=== PATIENT | female | born 1995 | race Caucasian/White ===

== ENCOUNTER 2025-01-19 17:00 | Observation (INO) | payer OTHER, SELFPAY ==
--- NOTE | ~2025-01-19 | MR_ITS ---
MRI of the brain Clinical History: Abnormal basal ganglia findings Technique: Axial and sagittal T1-weighted images were acquired. These were followed by axial T2-weigh ke, diffusion weighted, gradient, and FLAIR images. Following intravenous administration of 10 cc Pr oHance gadolinium, T1-weighted fat-sat imaging was performed in the axial, coronal, and sagittal plan es. Findings: No abnormal signal seen in the brain parenchyma. There is layering in particular unremarkab le. No acute infarct, intracranial hemorrhage or mass lesion. Intrathecal and subarachnoid spaces are unremarkable. Orbits are unremarkable. Paranasal sinuses and mastoid air cells are clear. Major intracranial flow-voids are intact. Sagittal midline structures are intact. No abnormal postcontrast enhancement identified. IMPRESSION: No significant abnormality. Reviewed, dictated and finalized at [facility]. IMPRESSION: No significant abnormality.
--- NOTE | ~2025-01-19 | XR_ITS ---
EXAMINATION: XR chest 1V DATE: 01/19/2025 18:28 INDICATION: Anterior chest pain. TECHNIQUE: AP view of the chest was obtained. COMPARISON: None FINDINGS: The lungs are clear with no focal airspace opacities, pulmonary edema, pleural effusion or pneumothor ax. The cardiomediastinal silhouette is normal. Visualized bones and soft tissues are unremarkable. IMPRESSION: 1. No acute cardiopulmonary disease. Reviewed, dictated and finalized at location A.
--- NOTE | ~2025-01-19 | CT_ITS ---
EXAMINATION: CT brain wo con DATE: 01/19/2025 18:24 INDICATION: Dizziness and brain fog. TECHNIQUE: Computed tomography (CT) of the head was performed without intravenous contrast. Sagittal and coronal reconstructions were performed. The mA was adjusted according to patient size. Iterative reconstruction technique was employed. The dose-length product was 529.67 mGy-cm. COMPARISON: None FINDINGS: No acute intracranial hemorrhage, acute infarction or abnormal extra axial fluid collection. Ventricl es are normal and symmetric. No mass/mass effect. Mild symmetric increased density likely dystrophic calcification at the bilateral basal ganglia. The orbits, paranasal sinuses and mastoid air cells are normal. IMPRESSION: 1. No acute intracranial process. 2. Symmetric mild bilateral basal ganglia calcification which is atypical for age and which has a wid e differential. This would include idiopathic, sequela of toxic insult such as carbon monoxide poison ing or left posterior, sequela of chronic infection such as SPECIAL EVENTS MANAGER toxoplasmosis, tuberculosis or intrau terine TORCH infection, metabolic etiology such as hypoparathyroidism, hyperparathyroidism or hypothy roidism, sequela of hypoxia were multiple variable etiologies. Reviewed, dictated and finalized at location A. IMPRESSION: 1. No acute intracranial process. 2. Symmetric mild bilateral basal ganglia calcification which is atypical for a ge and which has a wide differential. This would include idiopathic, sequela of toxic insult such as carbon monoxide poisoning or left posterior, sequela of c hronic infection such as SPECIAL EVENTS MANAGER toxoplasmosis, tuberculosis or intrauterine TORCH infection, metabolic etiology such as hypoparathyroidism, hyperparathyroidism o r hypothyroidism, sequela of hypoxia were multiple variable etiologies.
--- NOTE | ~2025-01-19 | CT_ITS ---
CT abdomen pelvis w con Ordering provider: Dave Wright PA-C History: 29 years Female with . abdominal pain . Comparison: None. Technique: CT abdomen and pelvis with IV and without oral contrast. Automated exposure control and it erative reconstruction technique were employed. The dose-length product was 161.72 mGy-cm. 100 mL Omn ipaque 350 was given IV. Findings: VISUALIZED LOWER CHEST: Normal. UPPER ABDOMINAL ORGANS: Liver: Normal. Gallbladder: Contracted. Spleen: Normal. Stomach/duodenum: Normal. Pancreas: Normal. Adrenals: Normal. Kidneys: Tiny cyst in the left kidney midpole. Otherwise, normal. PELVIC ORGANS: The bladder is underfilled. Left ovarian cyst measuring 1.7 cm. BOWEL AND MESENTERY: Colon: No evidence of diverticulitis. Fecal material is loaded in the colon. Normal appendix. Small Bowel: Normal. No obstruction. Peritoneum/mesentery: No free air or free fluid. No mesenteric lymphadenopathy. RETROPERITONEUM: Normal aorta. No retroperitoneal lymphadenopathy. MUSCULOSKELETAL: Superficial soft tissues: The superficial soft tissues are normal. Bones: Normal spine. IMPRESSION: 1. No evidence of appendicitis, diverticulitis or intestinal obstruction. 2. Left ovarian cyst. 3. Constipation. Reviewed, dictated and finalized at location A.
--- NOTE | 2025-01-19 17:08 | ECG_ITS ---
Test Date: 2025-01-19 17:23:45 Measurements Intervals [place] Rate: 75 P: 52 OR: 124 QRS: 35 QRSD: 82 T: 31 QT: 359 QTc: 403 Interpretive Statements SINUS RHYTHM No previous ECG available for comparison Electronically Signed On 01-20-2025 12:37:53 CDT by Olaf Jarvis M.D.
[2025-01-19 17:09] VITALS: BP 129/84; PULSE 76; RESP 10; TEMP 36.8; O2SAT 100
--- NOTE | 2025-01-19 17:42 | ED_ITS ---
HPI - Chest Pain General Chief Complaint: Chest Pain <Makenzie Virgen PA-C - Last Filed: 01/20/25 02:09> Stated Complaint: substernal CP, ?groggy <Makenzie Virgen PA-C - Last Filed: 01/20/25 02:09> Time Seen by Provider: 01/19/25 17:01 <Makenzie Virgen PA-C - Last Filed: 01/20/25 02:09> History of Present Illness HPI narrative: 29 y/o F presents to the emergency department with fiance at bedside for multiple medical complaints. Patient is reporting lightheadedness, dizziness, feeling ?loopy? intermittently for about a week. This afternoon she had an episode of feeling dizzy and ?loopy? which prompted her to come to the ED. She states she took 2 halves of her clonazepam today, her 2nd half was an hour to prior to the onset of her loopiness today. She is reporting decreased sensation otherwise side of her body. She is also endorsing intermittent chest pain she describes as sharp and tingling in her chest. She cannot identify any aggravating or alleviating factors. Patient also reporting intermittent epigastric pain that is better after eating appearing she is not currently having any abdominal pain. She is currently on antibiotics for BV. She denies urinary complaints, vomiting. Has had some nausea and loose stools. Patient endorses history of ADHD and anxiety. Patient is on several psychiatric medications but is managed by her psychiatrist, Maliha Del Rosario. She notes she has been under multiple medication changes over the past several weeks including cutting her mirtazapine dose in half. She has an appointment upcoming with her psychiatrist in 2 days. Patient reportedly went to [facility] for the same complains 2 days ago and states they did not find a cause. Patient is currently staying at her sister's house and states no one else in the household is having similar symptoms. <Makenzie Virgen PA-C - Last Filed: 01/20/25 02:09> Related Data Home Medications: Home Medications ?Medication ?Instructions ?Recorded ?Confirmed ?Last Taken ?Type albuterol sulfate 90 mcg/actuation 2 puff inhalation Q4-6H 01/19/25 01/19/25 Unknown History aerosol inhaler buspirone 5 mg tablet 5 mg PO TID 01/19/25 01/19/25 01/18/25 History cetirizine 10 mg tablet 10 mg PO DAILY 01/19/25 01/19/25 01/18/25 History clonazepam 0.5 mg tablet 0.5 mg PO Q12H PRN anxiety 01/19/25 01/19/25 Unknown History clonidine HCl 0.1 mg tablet 0.05 mg PO Q12H 01/19/25 01/19/25 01/18/25 History methylphenidate HCl 10 mg 10 mg PO DAILY 01/19/25 01/19/25 01/18/25 History tablet,extended release mirtazapine 7.5 mg tablet 7.5 mg PO DAILY 01/19/25 01/19/25 01/18/25 History <Makenzie Virgen PA-C - Last Filed: 01/20/25 02:09> Review of Systems 2 Review of Systems: All systems reviewed & are unremarkable except as noted in HPI and below <Makenzie Virgen PA-C - Last Filed: 01/20/25 02:09> [facility] Social History Social History: Social History Smoking status: Former smoker Alcohol intake: former Substance use: current Substance use type: marijuana Do You Feel Safe in your Home?: Yes Lack of Transportation: No Lack of Food: Never True Current Housing: I Have Housing Concerned About Future Housing: No Difficulty Paying Gas/Electric Bills: No Difficulty Paying for Meds: No Currently Unemployed: No Education: High School Diploma/GED Difficulty w/ Childcare or Family Care: No Spiritual care concerns: No <Makenzie Virgen PA-C - Last Filed: 01/20/25 02:09> Exam 2 Narrative: GENERAL: Well-appearing, well-nourished, and in no acute distress. HEAD: Normocephalic, atraumatic. EYES: PERRLA and EOMI. ENT: Nares clear, no rhinorrhea or epistaxis. Mucous membranes moist. NECK: Supple. CHEST: Clear to auscultation. No respiratory distress. HEART: Regular rate and rhythm. No murmur heard. Normal peripheral pulses. ABDOMEN: Soft, nontender, nondistended, normal active bowel sounds. No rebound, guarding or rigidity. No CVA tenderness EXTREMITIES: Normal range of motion. No edema. SKIN: Warm, dry, no rash. NEURO: No focal deficits. Alert and oriented x3. Diffuse weakness but moving all extremities spontaneously. Reported decreased sensation to V1 through V3 and right upper extremity. Slow speech <Makenzie Virgen PA-C - Last Filed: 01/20/25 02:09> Course ELECTROMECHANICAL ASSEMBLY TECHNICIAN/PA Physician Supervision This visit was performed by both a physician and an APC. I performed all aspects of the MDM as documented. <Leonardo Bennett MD - Last Filed: 01/19/25 21:57> Vital Signs Vital signs: Vital Signs Temperature 98.2 F 01/19/25 17:09 Pulse Rate 76 01/19/25 17:09 Respiratory Rate 10 L 01/19/25 17:09 Blood Pressure 129/84 01/19/25 17:09 Pulse Oximetry 100 01/19/25 17:09 Oxygen Delivery Room Air 01/19/25 17:09 Temperature 97.8 F 01/19/25 21:57 Pulse Rate 73 01/19/25 21:57 Respiratory Rate 18 01/19/25 21:57 Blood Pressure 119/77 01/19/25 21:57 Pulse Oximetry 99 01/19/25 21:57 Oxygen Delivery Room Air 01/19/25 22:27 <Makenzie Virgen PA-C - Last Filed: 01/20/25 02:09> Vital Signs Temperature 98.2 F 01/19/25 17:09 Pulse Rate 76 01/19/25 17:09 Respiratory Rate 10 L 01/19/25 17:09 Blood Pressure 129/84 01/19/25 17:09 Pulse Oximetry 100 01/19/25 17:09 Oxygen Delivery Room Air 01/19/25 17:09 Temperature 97.8 F 01/19/25 21:57 Pulse Rate 73 01/19/25 21:57 Respiratory Rate 18 01/19/25 21:57 Blood Pressure 119/77 01/19/25 21:57 Pulse Oximetry 99 01/19/25 21:57 Oxygen Delivery Room Air 01/19/25 22:27 <Leonardo Bennett MD - Last Filed: 01/19/25 21:57> MDM - Chest Pain MDM Narrative Medical decision making narrative: 29-year-old female history of ADHD and anxiety presents emergency department for multiple medical complaints including intermittent lightheadedness, dizziness, chest pain and tingling, epigastric abdominal pain, ?loopy-ness. Vitals are stable. Exam is notable for the above. Differential diagnosis includes anxiety, conversion disorder, pneumonia, pneumothorax, electrolyte derangement, ACS, other. Lab work shows no leukocytosis or anemia. Chemistries are largely unremarkable. UA with trace leuk esterase 1+ bacteria, no white blood cells, patient denies symptoms of UTI. is negative. UDS positive for cannabinoids. ETOH less than 10. Lipase normal. CK and TSH normal. EKG shows normal sinus rhythm with rate of 75 ppm, normal OH interval, normal QRS duration, normal QTC, no ischemic changes. Troponin is undetectable. Chest x-ray shows no acute cardiopulmonary disease. CT brain IMPRESSION: 1. No acute intracranial process. 2. Symmetric mild bilateral basal ganglia calcification which is atypical for age and which has a wide differential. This would include idiopathic, sequela of toxic insult such as carbon monoxide poisoning or left posterior, sequela of chronic infection such as C[employer]IED [employer] APPR[employer]ISER toxoplasmosis, tuberculosis or intrauterine TORCH infection, metabolic etiology such as hypoparathyroidism, hyperparathyroidism or hypothyroidism, sequela of hypoxia were multiple variable etiologies. Low suspicion for carbon monoxide poisoning given no one in patient's household is having similar symptoms. Additionally TSH within normal limits. I did discuss patient's presentation and findings with neurologist, Dr. Estevez, who advises admission and brain MRI in the morning. Advises continuation of home medications. Discussed with hospitalist, Dr. Clark, who agrees to admission. Advises ABG to check for carbon monoxide levels. <Makenzie Virgen PA-C - Last Filed: 01/20/25 02:09> Lab Data Result diagrams: 01/19/25 18:01 01/19/25 18:01 <Makenzie Virgen PA-C - Last Filed: 01/20/25 02:09> Labs: Lab Results 01/19/25 01/19/25 01/19/25 Range/Units 18:00 18:01 18:05 WBC 5.7 (4.5-10.0) K/mm3 RBC 4.42 (4.2-5.4) M/mm3 Hgb 13.1 (12.0-15.0) g/dL Hct 39.2 (37.0-47.0) % MCV 88.7 (80-100) fl MCH 29.6 (26-34) pg MCHC 33.4 (32-36) g/dl RDW 12.5 (11.5-14.5) % Plt Count 261 (150-375) k/mm3 MPV 10.7 H (7.4-10.4) fl Immature Gran % (Auto) 0.2 (0-0.5) % Neut % (Auto) 52.3 (45.5-73.1) % Lymph % (Auto) 36.4 (18.3-44.2) % Perry % (Auto) 6.7 (2.6-8.5) % Eos % (Auto) 3.2 (0-4.4) % Baso % (Auto) 1.2 (0.2-1.2) % Lymph # (Auto) 2.08 (0.9-3.2) K/mm3 Perry # (Auto) 0.4 (0.1-0.6) K/mm3 Eos # (Auto) 0.2 (0-0.3) K/mm3 Baso # (Auto) 0.1 (0.0-0.1) K/mm3 Abs Immat Gran (auto) 0.01 (0.00-0.031) K/mm3 Absolute Neuts (auto) 3.0 (1.3-6.7) K/mm3 Absolute Nucleated RBC 0.000 (0.0-0.012) K/mm3 Nucleated RBC % 0.0 (0.0-0.2) % PT 14.4 (11.1-14.7) Seconds INR 1.1 APTT 31.2 (22.3-36.8) Seconds Sodium 140 (137-145) mmol/L Potassium 3.6 (3.4-5.0) mmol/L Chloride 106 (98-107) mmol/L Carbon Dioxide 24 (22-30) mmol/L Anion Gap 10 (4-12) mmol/L BUN 23 H (7-17) mg/dL Creatinine 0.81 (0.7-1.0) mg/dL Estim Creat Clear Calc Not Reportable Estimated GFR > 60 (59 - ) Glucose 102 (65-110) mg/dL Calcium 9.3 (8.4-10.2) mg/dL Total Bilirubin 0.3 (0.2-1.3) mg/dL AST 22 (14-36) U/L ALT 14 (6-35) U/L Alkaline Phosphatase 40 (38-126) U/L Total Creatine Kinase 56 55 (30-135) U/L Troponin I < 0.012 (0.000-0.034) ng/mL Total Protein 7.3 (6.3-8.2) g/dL Albumin 4.3 (3.5-5.1) g/dL Lipase 78 (23-300) U/L TSH 0.525 0.483 (0.465-4.680) uIU/mL Urine Color Yellow (Yellow) Urine Appearance Clear (Clear) Urine pH 7.0 (5.0-9.0) Ur Specific [place] 1.024 (1.001-1.035) Urine Protein Negative (Negative) mg/dL Urine Glucose (UA) Negative (Negative) mg/dL Urine Ketones Negative (Negative) mg/dL Ur Blood (Man) Negative (Negative) Urine Nitrate Negative (Negative) Urine Bilirubin Negative (Negative) Urine Urobilinogen 0.2 (<2.0) mg/dL Leukocyte Esterase Rfl Trace H (Negative) SEKOU/UL Urine RBC 0-2 (0-2) /hpf Urine WBC 0-5 (0-3) /hpf Ur Squamous Epith Cells Occasional (Few) /hpf Urine Bacteria 1+ H /hpf Urine Casts 0-2 POC Urine HCG, Qual (Negative) Salicylates < 1.0 L (2-20) mg/dL Urine Opiates Screen Negative (Negative) Urine Methadone Screen Negative (Negative) Acetaminophen < 10 L (10-30) ug/mL Ur Barbiturates Screen Negative (Negative) Ur Phencyclidine Scrn Negative (Negative) Ur Amphetamine Screen Negative (Negative) U Benzodiazepines Scrn Negative (Negative) Urine Cocaine Screen Negative (Negative) U Cannabinoids Screen Positive A (Negative) Ethyl Alcohol < 10 (<10) mg/dL 07/15/25 Range/Units 18:07 WBC (4.5-10.0) K/mm3 RBC (4.2-5.4) M/mm3 Hgb (12.0-15.0) g/dL Hct (37.0-47.0) % MCV (80-100) fl MCH (26-34) pg MCHC (32-36) g/dl RDW (11.5-14.5) % Plt Count (150-375) k/mm3 MPV (7.4-10.4) fl Immature Gran % (Auto) (0-0.5) % Neut % (Auto) (45.5-73.1) % Lymph % (Auto) (18.3-44.2) % Perry % (Auto) (2.6-8.5) % Eos % (Auto) (0-4.4) % Baso % (Auto) (0.2-1.2) % Lymph # (Auto) (0.9-3.2) K/mm3 Perry # (Auto) (0.1-0.6) K/mm3 Eos # (Auto) (0-0.3) K/mm3 Baso # (Auto) (0.0-0.1) K/mm3 Abs Immat Gran (auto) (0.00-0.031) K/mm3 Absolute Neuts (auto) (1.3-6.7) K/mm3 Absolute Nucleated RBC (0.0-0.012) K/mm3 Nucleated RBC % (0.0-0.2) % PT (11.1-14.7) Seconds INR APTT (22.3-36.8) Seconds Sodium (137-145) mmol/L Potassium (3.4-5.0) mmol/L Chloride (98-107) mmol/L Carbon Dioxide (22-30) mmol/L Anion Gap (4-12) mmol/L BUN (7-17) mg/dL Creatinine (0.7-1.0) mg/dL Estim Creat Clear Calc Estimated GFR (59 - ) Glucose (65-110) mg/dL Calcium (8.4-10.2) mg/dL Total Bilirubin (0.2-1.3) mg/dL AST (14-36) U/L ALT (6-35) U/L Alkaline Phosphatase (38-126) U/L Total Creatine Kinase (30-135) U/L Troponin I (0.000-0.034) ng/mL Total Protein (6.3-8.2) g/dL Albumin (3.5-5.1) g/dL Lipase (23-300) U/L TSH (0.465-4.680) uIU/mL Urine Color (Yellow) Urine Appearance (Clear) Urine pH (5.0-9.0) Ur Specific [place] (1.001-1.035) Urine Protein (Negative) mg/dL Urine Glucose (UA) (Negative) mg/dL Urine Ketones (Negative) mg/dL Ur Blood (Man) (Negative) Urine Nitrate (Negative) Urine Bilirubin (Negative) Urine Urobilinogen (<2.0) mg/dL Leukocyte Esterase Rfl (Negative) SEKOU/UL Urine RBC (0-2) /hpf Urine WBC (0-3) /hpf Ur Squamous Epith Cells (Few) /hpf Urine Bacteria /hpf Urine Casts POC Urine HCG, Qual Negative (Negative) Salicylates (2-20) mg/dL Urine Opiates Screen (Negative) Urine Methadone Screen (Negative) Acetaminophen (10-30) ug/mL Ur Barbiturates Screen (Negative) Ur Phencyclidine Scrn (Negative) Ur Amphetamine Screen (Negative) U Benzodiazepines Scrn (Negative) Urine Cocaine Screen (Negative) U Cannabinoids Screen (Negative) Ethyl Alcohol (<10) mg/dL <Makenzie Virgen PA-C - Last Filed: 01/20/25 02:09> Lab Results 01/19/25 01/19/25 01/19/25 Range/Units 18:00 18:01 18:05 WBC 5.7 (4.5-10.0) K/mm3 RBC 4.42 (4.2-5.4) M/mm3 Hgb 13.1 (12.0-15.0) g/dL Hct 39.2 (37.0-47.0) % MCV 88.7 (80-100) fl MCH 29.6 (26-34) pg MCHC 33.4 (32-36) g/dl RDW 12.5 (11.5-14.5) % Plt Count 261 (150-375) k/mm3 MPV 10.7 H (7.4-10.4) fl Immature Gran % (Auto) 0.2 (0-0.5) % Neut % (Auto) 52.3 (45.5-73.1) % Lymph % (Auto) 36.4 (18.3-44.2) % Perry % (Auto) 6.7 (2.6-8.5) % Eos % (Auto) 3.2 (0-4.4) % Baso % (Auto) 1.2 (0.2-1.2) % Lymph # (Auto) 2.08 (0.9-3.2) K/mm3 Perry # (Auto) 0.4 (0.1-0.6) K/mm3 Eos # (Auto) 0.2 (0-0.3) K/mm3 Baso # (Auto) 0.1 (0.0-0.1) K/mm3 Abs Immat Gran (auto) 0.01 (0.00-0.031) K/mm3 Absolute Neuts (auto) 3.0 (1.3-6.7) K/mm3 Absolute Nucleated RBC 0.000 (0.0-0.012) K/mm3 Nucleated RBC % 0.0 (0.0-0.2) % PT 14.4 (11.1-14.7) Seconds INR 1.1 APTT 31.2 (22.3-36.8) Seconds Sodium 140 (137-145) mmol/L Potassium 3.6 (3.4-5.0) mmol/L Chloride 106 (98-107) mmol/L Carbon Dioxide 24 (22-30) mmol/L Anion Gap 10 (4-12) mmol/L BUN 23 H (7-17) mg/dL Creatinine 0.81 (0.7-1.0) mg/dL Estim Creat Clear Calc Not Reportable Estimated GFR > 60 (59 - ) Glucose 102 (65-110) mg/dL Calcium 9.3 (8.4-10.2) mg/dL Total Bilirubin 0.3 (0.2-1.3) mg/dL AST 22 (14-36) U/L ALT 14 (6-35) U/L Alkaline Phosphatase 40 (38-126) U/L Total Creatine Kinase 56 55 (30-135) U/L Troponin I < 0.012 (0.000-0.034) ng/mL Total Protein 7.3 (6.3-8.2) g/dL Albumin 4.3 (3.5-5.1) g/dL Lipase 78 (23-300) U/L TSH 0.525 0.483 (0.465-4.680) uIU/mL Urine Color Yellow (Yellow) Urine Appearance Clear (Clear) Urine pH 7.0 (5.0-9.0) Ur Specific [place] 1.024 (1.001-1.035) Urine Protein Negative (Negative) mg/dL Urine Glucose (UA) Negative (Negative) mg/dL Urine Ketones Negative (Negative) mg/dL Ur Blood (Man) Negative (Negative) Urine Nitrate Negative (Negative) Urine Bilirubin Negative (Negative) Urine Urobilinogen 0.2 (<2.0) mg/dL Leukocyte Esterase Rfl Trace H (Negative) SEKOU/UL Urine RBC 0-2 (0-2) /hpf Urine WBC 0-5 (0-3) /hpf Ur Squamous Epith Cells Occasional (Few) /hpf Urine Bacteria 1+ H /hpf Urine Casts 0-2 POC Urine HCG, Qual (Negative) Salicylates < 1.0 L (2-20) mg/dL Urine Opiates Screen Negative (Negative) Urine Methadone Screen Negative (Negative) Acetaminophen < 10 L (10-30) ug/mL Ur Barbiturates Screen Negative (Negative) Ur Phencyclidine Scrn Negative (Negative) Ur Amphetamine Screen Negative (Negative) U Benzodiazepines Scrn Negative (Negative) Urine Cocaine Screen Negative (Negative) U Cannabinoids Screen Positive A (Negative) Ethyl Alcohol < 10 (<10) mg/dL 01/19/25 Range/Units 18:07 WBC (4.5-10.0) K/mm3 RBC (4.2-5.4) M/mm3 Hgb (12.0-15.0) g/dL Hct (37.0-47.0) % MCV (80-100) fl MCH (26-34) pg MCHC (32-36) g/dl RDW (11.5-14.5) % Plt Count (150-375) k/mm3 MPV (7.4-10.4) fl Immature Gran % (Auto) (0-0.5) % Neut % (Auto) (45.5-73.1) % Lymph % (Auto) (18.3-44.2) % Perry % (Auto) (2.6-8.5) % Eos % (Auto) (0-4.4) % Baso % (Auto) (0.2-1.2) % Lymph # (Auto) (0.9-3.2) K/mm3 Perry # (Auto) (0.1-0.6) K/mm3 Eos # (Auto) (0-0.3) K/mm3 Baso # (Auto) (0.0-0.1) K/mm3 Abs Immat Gran (auto) (0.00-0.031) K/mm3 Absolute Neuts (auto) (1.3-6.7) K/mm3 Absolute Nucleated RBC (0.0-0.012) K/mm3 Nucleated RBC % (0.0-0.2) % PT (11.1-14.7) Seconds INR APTT (22.3-36.8) Seconds Sodium (137-145) mmol/L Potassium (3.4-5.0) mmol/L Chloride (98-107) mmol/L Carbon Dioxide (22-30) mmol/L Anion Gap (4-12) mmol/L BUN (7-17) mg/dL Creatinine (0.7-1.0) mg/dL Estim Creat Clear Calc Estimated GFR (59 - ) Glucose (65-110) mg/dL Calcium (8.4-10.2) mg/dL Total Bilirubin (0.2-1.3) mg/dL AST (14-36) U/L ALT (6-35) U/L Alkaline Phosphatase (38-126) U/L Total Creatine Kinase (30-135) U/L Troponin I (0.000-0.034) ng/mL Total Protein (6.3-8.2) g/dL Albumin (3.5-5.1) g/dL Lipase (23-300) U/L TSH (0.465-4.680) uIU/mL Urine Color (Yellow) Urine Appearance (Clear) Urine pH (5.0-9.0) Ur Specific [place] (1.001-1.035) Urine Protein (Negative) mg/dL Urine Glucose (UA) (Negative) mg/dL Urine Ketones (Negative) mg/dL Ur Blood (Man) (Negative) Urine Nitrate (Negative) Urine Bilirubin (Negative) Urine Urobilinogen (<2.0) mg/dL Leukocyte Esterase Rfl (Negative) SEKOU/UL Urine RBC (0-2) /hpf Urine WBC (0-3) /hpf Ur Squamous Epith Cells (Few) /hpf Urine Bacteria /hpf Urine Casts POC Urine HCG, Qual Negative (Negative) Salicylates (2-20) mg/dL Urine Opiates Screen (Negative) Urine Methadone Screen (Negative) Acetaminophen (10-30) ug/mL Ur Barbiturates Screen (Negative) Ur Phencyclidine Scrn (Negative) Ur Amphetamine Screen (Negative) U Benzodiazepines Scrn (Negative) Urine Cocaine Screen (Negative) U Cannabinoids Screen (Negative) Ethyl Alcohol (<10) mg/dL <Leonardo Bennett MD - Last Filed: 01/19/25 21:57> Discharge Plan Discharge Clinical Impression: Abnormal brain CT, Atypical chest pain <Makenzie Virgen PA-C - Last Filed: 01/20/25 02:09> Patient Disposition: Still a Patient <Makenzie Virgen PA-C - Last Filed: 01/20/25 02:09> Condition: Stable <Makenzie Virgen PA-C - Last Filed: 01/20/25 02:09>
[2025-01-19 17:45] VITALS: BP 115/74; PULSE 80; RESP 14; O2SAT 100
--- OUTSIDE RECORDS SUMMARY | 2025-01-19 17:47 | XMS_ITS | Clinical Summary ---
Author Organization [facility] Address [address] [place] [address] Care Team Providers Care Custom Motorcycle Painter Name Role Phone Pcp, No Primary Care Provider Unavailabl e Allergies Active Allergy Reactions Criticality Noted Date Comments Sulfa (Sulfonamide Antibiotics) Hives 04/07 Medications busPIRone (BUSPAR) 10 MG tablet 03/07/2023 Active hydrOXYzine (ATARAX) 10 MG tablet TAKE 2 TABLETS BY MOUTH AT BEDTIME NEEDED. MAY TAKE 1-2 CAPSULE EVERY NIGHT AT BEDTIME NEEDED 02/22/2023 Active lamoTRIgine (LaMICtal) 25 MG tablet 02/14/2023 Active Social History Tobacco Use Types Packs/Day Years Used Date Smoking Tobacco: Never Assessed Comments Unknown Sex and Gender Information Value Date Recorded Sex Assigned at Not on file Legal Sex Female 2:09 PM CDT Gender Identity Not on file Sexual Orientation Not on file Last Filed Vital Signs Vital Sign Reading Time Taken Comments Blood Pressure 104/69 04/16/2023 11:39 PM CDT Pulse - - Temperature 36.6 C (97.8 F) 04/16/2023 11:39 PM CDT Respiratory Rate 18 04/16/2023 11:39 PM CDT Oxygen Saturation 97% 04/16/2023 11:39 PM CDT Inhaled Oxygen Concentration - - Weight 51.7 kg (114 lb) 04/16/2023 11:39 PM CDT Height 157.5 cm (5' 2) 04/16/2023 11:39 PM CDT Body Mass Index 20.85 04/16/2023 11:39 PM CDT Plan of Treatment Not on file Insurance [facility] Care Teams Custom Motorcycle Painter Relationship Specialty Start Date End Date Pcp, Deb PCP - General 04/18/23
--- OUTSIDE RECORDS SUMMARY | 2025-01-19 17:47 | XMS_ITS | Encounter Summary ---
Author Organization [facility] Address [address] [place] [address] Care Team Providers Care Architectural Renderer Name Role Phone Gustavo Acosta MD Primary Care Provider [phone] Encounter Details Date Type Department Care Team (Late st Contact Info) Description 06/16/2024 Orders Only [facility] [address] [place] [address] Gustavo Acosta MD [address] [address] Venereal disease screening (Primary Dx) Social History Tobacco Use Types Packs/Day Years Used Date Smoking Tobacco: Never Assessed Comments No Sex and Gender Information Value Date Recorded Sex Assigned at Not on file Legal Sex Female 11:15 AM CDT Gender Identity Not on file Sexual Orientation Not on file documented as of this encounter Plan of Treatment Upcoming Encounters Date Type Department Care Team (Late st Contact Info) Description 04/06/2025 11:20 AM CDT Office Visit [facility] [address] [facility] [facility], [address] [place] [address] Sussy Barrios DPM [address] [facility] [address] [place] [address] documented as of this encounter Results * (ABNORMAL) HSV Type 1 & 2 Glycoprotein G-Specific Antibodies IgG by JILLIAN (06/16/2024 1:37 PM IRRIGATION SERVICE TECHNICIAN) Pathologist [facility] HSV 1 Glycoprotein G Ab, IgG 32.30(H) <=0.89 IV 06/18/2024 11:48 PM IRRIGATION SERVICE TECHNICIAN [facility] Comment: REFERENCE INTERVAL: HSV 1 Glycoprotein G Ab, IgG 0.89 IV or less ...... Negative - No significant level of detectable IgG antibody to HSV type 1 glycoprotein G. 0.90 - 1.09 IV ....... Equivocal - Questionable presence of IgG antibody to HSV type 1 glycoprotein G. Repeat testing in 10 - 14 days may be helpful. 1.10 IV or greater ... Positive - IgG antibody to HSV type 1 glycoprotein G detected, which may indicate a current or past HSV infection. Individuals infected with HSV may not exhibit detectable IgG antibody to type-specific HSV antigens 1 and 2 in early stages of infection. Detection of antibody presence in these cases may only be possible using a non-type specific screening test. HSV 2 Glycoprotein G Antibody, IgG 0.22 <=0.89 IV 06/18/2024 11:48 PM IRRIGATION SERVICE TECHNICIAN [facility] Comment: REFERENCE INTERVAL: HSV 2 Glycoprotein G Ab, IgG 0.89 IV or less ....... Negative - No significant level of detectable IgG antibody to HSV type 2 glycoprotein G. 0.90 - 1.09 IV ........ Equivocal - Questionable presence of IgG antibody to HSV type 2 glycoprotein G. Repeat testing in 10 - 14 days may be helpful. 1.10 IV or greater .... Positive - IgG antibody to HSV type 2 glycoprotein G detected, which may indicate a current or past HSV infection. Individuals infected with HSV may not exhibit detectable IgG antibody to type-specific HSV antigens 1 and 2 in early stages of infection. Detection of antibody presence in these cases may only be possible using a non-type specific screening test. Performed By: [email or web address] [address] [place] [id number] Electric Melt Operator: Christopher Agrawal MD, PhD CLIA Number: [id number] Blood Venous blood specimen / Unknown Venipuncture / Unknown 06/16/2024 1:37 PM IRRIGATION SERVICE TECHNICIAN 06/16/2024 1:37 PM IRRIGATION SERVICE TECHNICIAN Narrative [facility] - 06/18/2024 11:48 PM IRRIGATION SERVICE TECHNICIAN Source: Unconfirmed Specimen Start Date: Gustavo Acosta MD LAB BLOOD ORDERABLES Final Res ult [facility] [address] [place] [address] documented in this encounter Visit Diagnoses Diagnosis Venereal disease screening- Primary Screening examination for venereal disease documented in this encounter Care Teams Architectural Renderer Relationship Specialty Start Date End Date Gustavo Acosta MD [address] [address] PCP - General Family Medicine 08/21/24 documented as of this encounter
--- OUTSIDE RECORDS SUMMARY | 2025-01-19 17:47 | XMS_ITS | Clinical Summary ---
Author Organization [facility] Address [address] [place] [id number] Care Team Providers Care Acquisition Consultant Name Role Phone Gustavo Acosta MD Primary Care Provider [phone] Allergies Active Allergy Reactions Criticality Noted Date Comments Sulfa (Sulfonamide Antibiotics) Anaphylaxis High 04/2021 Medications No known medications Active Problems No known active problems Encounters Date Type Department Care Team Description 12/10/2024 Telephone [facility] [address], [address] [place] [address] Sussy Barrios DPM from Last 3 Months Immunizations Immunization Administration Dates Next Due Tdap 11/06/2023 Social History Tobacco Use Types Packs/Day Years Used Date Smoking Tobacco: Never Assessed Comments No Sex and Gender Information Value Date Recorded Sex Assigned at Not on file Legal Sex Female 11:15 AM CDT Gender Identity Not on file Sexual Orientation Not on file Last Filed Vital Signs Vital Sign Reading Time Taken Comments Blood Pressure 100/67 11/06/2023 1:00 AM CDT Pulse 68 11/06/2023 1:00 AM CDT Temperature 36.8 C (98.2 F) 11/05/2023 11:35 PM CDT Respiratory Rate 16 11/06/2023 1:00 AM CDT Oxygen Saturation 99% 11/06/2023 1:00 AM CDT Inhaled Oxygen Concentration - - Weight 56.2 kg (124 lb) 11/05/2023 11:35 PM CDT Height 157.5 cm (5' 2) 11/05/2023 11:35 PM CDT Body Mass Index 22.68 11/05/2023 11:35 PM CDT Plan of Treatment Upcoming Encounters Date Type Department Care Team (Late st Contact Info) Description 04/06/2025 11:20 AM CDT Office Visit [facility] [address], [address] [place] [address] Sussy Barrios, DPM [address] [facility] [place], [place] [id number] Health Maintenance Due Date Last Done Comments Pap Smear 1996 MMR Vaccines (1 of 1 - Stand zoie series) 1997 Varicella Vaccines (1 of 2 - 13+ 2-dose series) 2009 Hepatitis B Vaccines (1 of 3 - 19+ 3-dose series) 12/15/2015 COVID-19 Vaccine (1 - 2023-2 5 season) 2024 Influenza Vaccine (#1) 2025 03/30/2024 DTaP,Tdap,and Td Vaccines (2 - Td or Tdap) 11/05/2033 11/06/2023 RSV Vaccines and 60 Years or Older (1 - 1-dose 75+ series) 12/15/2071 AMB Pneumococcal 0-49 yrs Aged Out No longer eligible based on patient's age to complete this topic HIB Vaccines Aged Out No longer eligi ble based on patient's age to complete this topic HPV Vaccines Aged Out No longer eligi ble based on patient's age to complete this topic Hepatitis A Vaccines Aged Out No long er eligible based on patient's age to complete this topic IPV Vaccines Aged Out No longer eligi ble based on patient's age to complete this topic Meningococcal ACWY Vaccine Aged Out N o longer eligible based on patient's age to complete this topic Meningococcal B Vaccine Aged Out No l onger eligible based on patient's age to complete this topic RSV Vaccines <20 Months Aged Out No l onger eligible based on patient's age to complete this topic Insurance [facility] [place] [address] (MCDO) [facility] Care Teams Acquisition Consultant Relationship Specialty Start Date End Date Gustavo Acosta MD [address] [address] PCP - General Family Medicine 08/21/24
--- OUTSIDE RECORDS SUMMARY | 2025-01-19 17:47 | XMS_ITS | Continuity of Care Document ---
Author Name [facility] Organization [facility] Care Team Providers Care Processing Supervisor Name Role Phone [facility] Unavailable Unavailable Problems Combined list of problems from Department of Defense and [facility] facilities. It does not include entries that were removed or entered in error. Problem Status Onset Date Problem Type Date of Resolution Comments Source Diagnosis: ICD-10-CM Z65.9 Problem related to unspecified psychosocial circumstances Active Diagnosis [facility] Diagnosis: ICD-10-CM Z78.9 Other specified health status Active Diagnosis [facility] Diagnosis: ICD-10-CM Z72.89 Other problems related to lifestyle Active Diagnosis [facility] Diagnosis: ICD-10-CM Z65.8 Oth problems related to psychosocial circumstances Active Diagnosis [facility] Encounters Combined list of: 1) Encounters from [facility] of Veterans Affairs facilities going backup to the last 18 months, not all ID inpatient encounters are included; 2) Encounters from the Department of [facility] facilities going backup to 280 months. Location Location Details Encounter Type Encounter Number Reason For Visit Attending Provider ADM Date DC Date Status Disposition Source [facility] ASSMT/REAS SESSMENT [id number] Diagnos is: ICD-10- CM Z65.8 Oth problem s related to psychos ocial circums CLAUDIA Carlson 09/11 [facility] IVNTJ GRP EA ADDL [id number] Diagnos is: ICD-10- CM Z72.89 Other problem s related to lifesty SUJATHA Ortiz 09/16 [facility] SELF-MGMT EDUC/[place] 2-4 [place] [id number] Diagnos is: ICD-10- CM Z78.9 Other specifi ed health status LORE PICKARD 09/18 [facility] HC PRO PHONE CALL 5-10 MIN [id number] Diagnos is: ICD-10- CM Z65.9 Problem related to unspeci fied psychos ocial circums AGNES Hernández 04/28 [facility] Outpatient Encounter [id number] 09/08 [facility] TAVONJOHANNE Shaikh [facility] Outpatient Encounter [id number] 10/12 [facility]
--- OUTSIDE RECORDS SUMMARY | 2025-01-19 17:47 | XMS_ITS | Clinical Summary ---
Author Organization [facility] Address [address] [place] [address] Phone Care Team Providers Care Third Officer Name Role Phone Unavailable Primary Care Provider Unavailabl e Allergies Active Allergy Reactions Criticality Noted Date Comments Sulfa (Sulfonamide Antibiotics) Anaphylaxis High Medications albuterol (PROVENTIL,VENTOL IN) 2.5 mg /3 mL (0.083 %) Solution for Nebulization Take 3 mL (2.5 mg) by inhalation every 6 hours as needed for Shortness of Breath or Wheezing. 30 Each 3 Active nebulizer Length of need 99 months Nebulizer with compressor, Kit: Permanent Nebulizer Kit, 1 per 6 months, filters , areosol mask: Yes. Name of Medication: albuterol 1 Each 3 Active Social History Tobacco Use Types Packs/Day Years Used Date Smoking Tobacco: Never Tobacco Cessation:Counseling Given: Not Answered Alcohol Use Standard Drinks/Week Comments Not Currently 0 (1 standard drink = 0.6 oz pur e alcohol) Feeling Safe Answer Date Recorded Are you in a relationship wi th someone who hurts you emotionally and/or physically? No 06/22/2023 Comments Unknown Sex and Gender Information Value Date Recorded Sex Assigned at Not on file Legal Sex Female 11:04 PM CDT Gender Identity Not on file Sexual Orientation Not on file Last Filed Vital Signs Vital Sign Reading Time Taken Comments Blood Pressure 97/63 06/22/2023 7:10 AM CLINICAL LEADER Pulse 94 06/22/2023 7:10 AM CLINICAL LEADER Temperature 37.1 C (98.8 F) 06/22/2023 6:03 AM CLINICAL LEADER Respiratory Rate 18 06/22/2023 7:10 AM CLINICAL LEADER Oxygen Saturation 99% 06/22/2023 7:10 AM CLINICAL LEADER Inhaled Oxygen Concentration - - Weight 52.2 kg (115 lb) 06/22/2023 6:03 AM CLINICAL LEADER Height 157.5 cm (5' 2) 06/22/2023 6:03 AM CLINICAL LEADER Body Mass Index 21.03 06/22/2023 6:03 AM CLINICAL LEADER Plan of Treatment Health Maintenance Due Date Last Done Comments DTAP/TDAP/TD VACCINES (1 - Tdap) 12/15/2015 HEPATITIS B VACCINES (1 of 3 - 19+ 3-dose series) 12/15/2015 CERVICAL CANCER SCREENING 2017 HPV/Cotest (21-29) 2017 PAP SMEAR 2017 INFLUENZA VACCINE (#1) 2025 HPV VACCINES Aged Out No longer eligi ble based on patient's age to complete this topic Insurance [facility] MEDICAID
--- OUTSIDE RECORDS SUMMARY | 2025-01-19 17:47 | XMS_ITS | Encounter Summary ---
Author Organization [facility] Address [address] [place] [address] Care Team Providers Care Dispensing Audiologist Name Role Phone Gustavo Acosta MD Primary Care Provider [phone] Encounter Details Date Type Department Care Team (Late st Contact Info) Description 07/15/2024 Orders Only [facility] [address] [facility] [place] [address] Gustavo Acosta MD [address] [address] Encounter for screening for infections with predominantly sexual mode of transmission (Primary Dx) Social History Tobacco Use Types [...] Description 04/06/2025 11:20 AM CDT Office Visit [facility] [address] [place] [address], [address] [place] [id number] Sussy Barrios DPM [address] [facility] [address] [place] [address] documented as of this encounter Results * (ABNORMAL) HSV Type 1 & 2 Glycoprotein G-Specific Antibodies IgG by JILLIAN (08/21/2024 8:41 AM CAR[facility]OLD) [facility] HSV 1 Glycoprotein G Ab, IgG 35.90(H) <=0.89 IV 08/24/2024 9:23 AM [facility] M[facility] Comment: REFERENCE INTERVAL: HSV 1 Glycoprotein [...] Glycoprotein G Antibody, IgG 0.22 <=0.89 IV 08/24/2024 9:23 AM [facility] Comment: REFERENCE INTERVAL: HSV 2 Glycoprotein [...] a non-type specific screening test. Performed By: [facility] [address] [place] [address] Electronic Health Records Specialist: Christopher Agrawal MD, PhD CLIA Number: [id number] Blood Venous blood specimen / Unknown Venipuncture / Unknown 08/21/2024 8:41 AM [facility]OLD 08/21/2024 8:41 AM [facility]OLD Narrative [facility] - 08/24/2024 9:23 AM [facility]PENTER [facility]OLD Source: Unconfirmed Specimen Start Date: us Gustavo Acosta MD LAB BLOOD ORDERABLES Final Res ult [facility] [address] [place] [address] documented in this encounter Visit Diagnoses Diagnosis Encounter for screening for infections with predominantly sexual mode of transmission- Primary documented in this encounter Care Teams Dispensing Audiologist Relationship Specialty Start Date End Date Gustavo Acosta MD [address] [address] PCP - General Family Medicine 08/21/24 documented as of this encounter
[2025-01-19 18:08] LABS: BEDSIDEPREGUCG Negative (Negative)
[2025-01-19 18:14] LABS: Hematocrit 39.2 % (37.0-47.0); Hemoglobin 13.1 g/dL (12.0-15.0); Immature Granulocyte Percent A 0.2 % (0-0.5); Lymphocytes Absolute Auto 2.08 K/mm3 (0.9-3.2); Mean Corpuscular HGB Conc 33.4 g/dl (32-36); Mean Corpuscular Hemoglobin 29.6 pg (26-34); Mean Corpuscular Volume 88.7 fl (80-100); Nucleated Red Blood Cells Absolute Auto 0.000 K/mm3 (0.0-0.012); Nucleated Red Blood Cells Perc 0.0 % (0.0-0.2); Platelet Count Result 261 k/mm3 (150-375); Red Blood Count 4.42 M/mm3 (4.2-5.4); White Blood Count 5.7 K/mm3 (4.5-10.0)
[2025-01-19 18:27] LABS: INR 1.1; Prothrombin Time 14.4 Seconds (11.1-14.7)
[2025-01-19 18:28] LABS: Partial Thromboplastin Time 31.2 Seconds (22.3-36.8)
[2025-01-19 18:31] LABS: Cannabinoid Screen Urine Positive (Negative)
[2025-01-19 18:37] LABS: Add Urine Microscopic? YES; Appearance Urine Clear (Clear); Glucose Urine UA Negative (Negative); Leukocyte Esterase Ur Trace LEU/UL (Negative); Nitrate Urine Negative (Negative); Non Pathogenic Casts 0-2; Specific Grav Ur 1.024 (1.001-1.035)
[2025-01-19 18:39] LABS: Alanine Aminotransferase 14 U/L (6-35); Albumin Level 4.3 g/dL (3.5-5.1); Alkaline Phosphatase 40 U/L (38-126); Anion Gap 10 mmol/L (4-12); Aspartate Amino Transferase 22 U/L (14-36); Bilirubin,Total 0.3 mg/dL (0.2-1.3); Blood Urea Nitrogen 23 mg/dL (7-17); Calcium 9.3 mg/dL (8.4-10.2); Carbon Dioxide 24 mmol/L (22-30); Chloride 106 mmol/L (98-107); Creatine Kinase 55 U/L (30-135); Estimated Glomerular Filt Rate > 60; Glucose 102 mg/dL (65-110); Lipase 78 U/L (23-300); Potassium 3.6 mmol/L (3.4-5.0); Sodium 140 mmol/L (137-145); Total Protein 7.3 g/dL (6.3-8.2)
[2025-01-19 18:46] LABS: Troponin I < 0.012 ng/mL (0.000-0.034)
[2025-01-19 19:05] LABS: Thyroid Stimulating Hormone 0.483 uIU/mL (0.465-4.680)
[2025-01-19 19:10] VITALS: BP 109/64; PULSE 84; RESP 23; O2SAT 98
[2025-01-19 19:16] VITALS: BP 103/65; PULSE 74; RESP 14
[2025-01-19 20:00] LABS: Creatine Kinase 56 U/L (30-135)
[2025-01-19 20:13] LABS: Alveolar/Arterial O2 Gradient 7.6 mmHg; Fractional Inspired Oxygen 21 %; HCO3 ABG 23.5 mEq/l (22.0-26.0); Oxygen Content ABG 18.8 %vol (16.0-22.0); Oxygen Saturation ABG 98.4 % (95.0-100.0); PCO2 ABG 29.8 mmHg (35.0-45.0); PO2 ABG 106.4 mmHg (80.0-100.0); PO2 FiO2 Ratio Arterial Blood 5.07 %
[2025-01-19 20:15] LABS: Modified Allen's Test Pass; Site Drawn LEFT RADIAL
[2025-01-19 20:35] LABS: Thyroid Stimulating Hormone 0.525 uIU/mL (0.465-4.680)
[2025-01-19 21:17] VITALS: BMI 19.0
--- NOTE | 2025-01-19 21:31 | ADMGEN ---
This patient, Jayden Kearney, was admitted to [facility] Surg Room 327-01. Patient/family oriented to hospital policies and general routines including ID bracelet, bed and alarms, visiting hours, pain management, procedures, bathroom and other care routines, personal items, smoking policy, room service/diet, and visiting hours. Information on how to activate the Rapid Response Team has been discussed. Patient/Family are encouraged to report perceived risks to care and to ask questions if they do not understand what they are told or what they should do.
[2025-01-19 21:38] LABS: Acetaminophen < 10 ug/mL (10-30); Salicylate < 1.0 mg/dL (2-20)
--- NOTE | 2025-01-19 21:49 | P.HP_ITS ---
H&P: HPI History of Present Illness Date/Time: 01/19/25 21:49 Chief Complaint: Multiple complaints, dizziness, pain, tingling Narrative: 29-year-old female presents to [facility] ER on 01/19/2025 with multiple complaints. She is accompanied by her fiance who she lives with. The patient reports lightheadedness, dizziness, feeling loopy, pain in the chest, jerking of the head, anxiety, and a fortunately her complaints are endless, difficult to pinpoint. During evaluation she has pressured speech, flight of ideas, tangential speech. She has a history of ADHD, anxiety. She sees a psychiatrist Maliha Del Rosario and recently they were trying to wean down her clonazepam and mirtazapine. The patient had the above complaints for about a week and 2 days prior to admission presented to [place]. No etiology was identified and patient was discharged. She is not travel recently, denies fever, shortness of breath, nausea vomiting cough, diarrhea. She has 1 cat at home for over year now. Not had sick contacts. Your evaluation largely unremarkable including her vital signs, chest x-ray, CBC, INR, CMP except for a BUN of 23, urinalysis, U tox with positive cannabinoids. Patient reports having cessation of marijuana use in January. Acetaminophen salicylates and ethanol levels within normal limits. ABG demonstrating respiratory alkalosis with pH 7.5 and a pCO2 29.8 with a PO2 106.[address] a bicarb 23.5 CT head did not demonstrate acute intracranial process but symmetric mild bilateral basal ganglia calcification which is atypical for age which could include a wide range of etiologies. Dr. Estevez of Neurology was contacted from the ER. Suggested brain MRI and admission. Review of Systems Review of Systems: All systems reviewed & are unremarkable except as noted in HPI and below (Subjective/HPI) Meds Vital Signs Vital Signs - 24 hr 01/19/25 17:09 01/19/25 17:15 01/19/25 17:45 Temperature 98.2 F Pulse Rate 76 80 Respiratory Rate 10 L 14 Blood Pressure 129/84 115/74 Pulse Oximetry 100 100 Oxygen Delivery Room Air Room Air 01/19/25 19:10 01/19/25 19:16 Temperature Pulse Rate 84 74 Respiratory Rate 23 H 14 Blood Pressure 109/64 103/65 Pulse Oximetry 98 Oxygen Delivery Exam Const: General: comfortable and no acute distress HENMT: Mouth: Yes moist mucous membranes Eyes: Pupils: Equal, round and reactive pupils present Neck: Neck: supple Resp: Effort & Inspection: normal respiratory effort Auscultation: clear to auscultation bilaterally Cardio: Rate: regular rate Rhythm: regular rhythm Heart sounds: no gallops, no murmurs and no rubs GI: Inspection: non-distended GI Palp: Yes Soft to palpation : General: Yes bladder normal to palpation Neuro: Speech: normal speech Motor exam (neuro): 5/5 motor strength present throughout Sensory Exam: normal sensation Extrem: General: no edema Psych: Affect: Anxious affect present Other: Tangential speech H&P: Results Labs Labs: Short CBC 01/19/25 Range/Units 18:01 WBC 5.7 (4.5-10.0) K/mm3 Hgb 13.1 (12.0-15.0) g/dL Hct 39.2 (37.0-47.0) % Plt Count 261 (150-375) k/mm3 BMP 01/19/25 18:01 Sodium 140 Potassium 3.6 Chloride 106 Carbon Dioxide 24 BUN 23 H Creatinine 0.81 Glucose 102 Calcium 9.3 Cardiac Enzymes 01/19/25 01/19/25 Range/Units 18:00 18:01 Total Creatine Kinase 56 55 (30-135) U/L Troponin I < 0.012 (0.000-0.034) ng/mL Liver Function 01/19/25 Range/Units 18:01 Total Bilirubin 0.3 (0.2-1.3) mg/dL AST 22 (14-36) U/L ALT 14 (6-35) U/L Alkaline Phosphatase 40 (38-126) U/L Albumin 4.3 (3.5-5.1) g/dL Urine 01/19/25 Range/Units 18:05 Urine Color Yellow (Yellow) Urine Appearance Clear (Clear) Urine pH 7.0 (5.0-9.0) Ur Specific [place] 1.024 (1.001-1.035) Urine Protein Negative (Negative) mg/dL Urine Glucose (UA) Negative (Negative) mg/dL Assessment and Plan Assessment and plan (1) Abnormal brain CT: Code(s): R90.89 - Other abnormal findings on diagnostic imaging of central nervous system Status: Acute (2) Dizziness: Code(s): R42 - Dizziness and giddiness Status: Acute (3) Anxiety: Code(s): F41.9 - Anxiety disorder, unspecified Status: Acute Plan 29-year-old female presents to [facility] ER on 01/19/2025 with multiple complaints. She is accompanied by her fiance who she lives with. The patient reports lightheadedness, dizziness, feeling loopy, pain in the chest, jerking of the head, anxiety, and a fortunately her complaints are endless, difficult to pinpoint. During evaluation she has pressured speech, flight of ideas, tangential speech. She has a history of ADHD, anxiety. She sees a psychiatrist Maliha Del Rosario and recently they were trying to wean down her clonazepam and mirtazapine. The patient had the above complaints for about a week and 2 days prior to admission presented to [place]. No etiology was identified and patient was discharged. She is not travel recently, denies fever, shortness of breath, nausea vomiting cough, diarrhea. She has 1 cat at home for over year now. Not had sick contacts. Your evaluation largely unremarkable including her vital signs, chest x-ray, CBC, INR, CMP except for a BUN of 23, urinalysis, U tox with positive cannabinoids. Patient reports having cessation of marijuana use in January. Acetaminophen salicylates and ethanol levels within normal limits. ABG demonstrating respiratory alkalosis with pH 7.5 and a pCO2 29.8 with a PO2 106.4 and a bicarb 23.5 CT head did not demonstrate acute intracranial process but symmetric mild bilateral basal ganglia calcification which is atypical for age which could include a wide range of etiologies. Dr. Estevez of Neurology was contacted from the ER. Suggested brain MRI and adm ission. ----- Respiratory alkalosis may be due to hyperventilation. The patient has uncontrolled anxiety at baseline. It is unclear what symptoms are related to her abnormal brain CT findings of mild bilateral basal ganglia calcification is many of her multiple complaints could be psychosomatic in nature. Brain MRI ordered. Neurology consult pending. PTOT evaluation ordered to ensure safety with ambulation. Orthostatics ordered. TSH 0.525. Pending HIV/syphilis/vitamin B12/folate. Full code. Saline lock IV. Regular diet. Ambulate with assistance. Patient lives with her fiance. Medication reconciliation is pending. Will restart medications as appropriate. Hospitalist [facility] Advance Care Plan I have confirmed that the patient's Advanced Care Plan is present, code status is documented, or surrogate decision maker is listed in patient medical record.: Yes Medication Reconciliation I have utilized all available resources to obtain, update and review the patients current medications (includes all prescriptions, OTC, herbals, cannabis, and nutritional supplements).: Yes
[2025-01-19 21:57] VITALS: BP 119/77; PULSE 73; RESP 18; TEMP 36.6; O2SAT 99
[2025-01-19 21:59] VITALS: BMI 19.8
[2025-01-20 05:21] VITALS: BP 107/41; PULSE 89; RESP 18; TEMP 36.3; O2SAT 98
[2025-01-20 06:10] LABS: Hematocrit 39.5 % (37.0-47.0); Hemoglobin 13.0 g/dL (12.0-15.0); Immature Granulocyte Percent A 0.3 % (0-0.5); Lymphocytes Absolute Auto 2.45 K/mm3 (0.9-3.2); Mean Corpuscular HGB Conc 32.9 g/dl (32-36); Mean Corpuscular Hemoglobin 29.9 pg (26-34); Mean Corpuscular Volume 90.8 fl (80-100); Nucleated Red Blood Cells Absolute Auto 0.000 K/mm3 (0.0-0.012); Nucleated Red Blood Cells Perc 0.0 % (0.0-0.2); Platelet Count Result 252 k/mm3 (150-375); Red Blood Count 4.35 M/mm3 (4.2-5.4); White Blood Count 6.1 K/mm3 (4.5-10.0)
[2025-01-20 06:29] LABS: Alanine Aminotransferase 11 U/L (6-35); Albumin Level 3.8 g/dL (3.5-5.1); Alkaline Phosphatase 38 U/L (38-126); Anion Gap 8 mmol/L (4-12); Aspartate Amino Transferase 21 U/L (14-36); Bilirubin,Total 0.3 mg/dL (0.2-1.3); Blood Urea Nitrogen 22 mg/dL (7-17); Calcium 8.9 mg/dL (8.4-10.2); Carbon Dioxide 22 mmol/L (22-30); Chloride 107 mmol/L (98-107); Estimated CRCL calculation 78 ml/min; Estimated Glomerular Filt Rate > 60; Glucose 89 mg/dL (65-110); Magnesium 2.0 mg/dL (1.6-2.3); Potassium 3.8 mmol/L (3.4-5.0); Sodium 137 mmol/L (137-145); Total Protein 6.5 g/dL (6.3-8.2)
[2025-01-20 06:49] LABS: Syphilis IgG/IgM Antibody Non-Reactive (Nonreactive)
[2025-01-20 07:01] LABS: HIV 1/2 Ab P24 Ag Result Negative (Negative)
[2025-01-20 07:40] LABS: Vitamin B12 256.0 pg/mL (239-931)
[2025-01-20 07:45] VITALS: O2SAT 95
[2025-01-20 08:00] VITALS: BP 108/63; PULSE 91; RESP 18; TEMP 36.6; O2SAT 100
[2025-01-20] MEDS: clonazePAM (*CRX) 0.5 MG TABLET PO (08:40)
[2025-01-20] MEDS: LORATADINE 10 MG TABLET PO (08:40)
--- NOTE | 2025-01-20 09:05 | P.PNIM_ITS ---
Progress Note: A&P Assessment and Plan (1) Abnormal brain CT: Code(s): R90.89 - Other abnormal findings on diagnostic imaging of central nervous system Status: Acute Assessment and Plan: * CT Head * No acute intracranial process. * Symmetric mild bilateral basal ganglia calcification which is atypical for age and which has a wide differential. This would include idiopathic, sequela of toxic insult such as carbon monoxide poisoning or left posterior, sequela of chronic infection such as [employer] toxoplasmosis, tuberculosis or intrauterine TORCH infection, metabolic etiology such as hypoparathyroidism, hyperparathyroidism or hypothyroidism, sequela of hypoxia were multiple variable etiologies. * TSH, Vit B12, Folate, UA, Syphillis, HIV negative for any acute findings * Salicylates <1.0, Acetaminophen <10 * CXR unremarkable * Neurology consult, pending recommendations * Brain MRI unremarkable (2) Dizziness: Code(s): R42 - Dizziness and giddiness Status: Acute Assessment and Plan: * See above * PT/OT to eval ambulation safety (3) Anxiety: Code(s): F41.9 - Anxiety disorder, unspecified Status: Acute Assessment and Plan: * Hx of anxiety, ADHD * Sees psychiatrist Maliha Del Rosario * Recently attempting to wean down Clonazepam and Mirtazapine * Psych consult (4) Respiratory alkalosis: Code(s): E87.3 - Alkalosis Status: Acute Assessment and Plan: * ABG demonstrating respiratory alkalosis with pH 7.5 and a pCO2 29.8 with a PO2 106.4 and a bicarb 23.5 * Likely 2/2 to hyperventilation Subjective Date/time seen: 01/20/25 09:05 Interval history: 29-year-old female presents to [facility] ER on 01/19/2025 with multiple complaints. She is accompanied by her fiance who she lives with. The patient reports lightheadedness, dizziness, feeling loopy, pain in the chest, jerking of the head, anxiety, and a fortunately her complaints are endless, difficult to pinpoint. 01/20/2025 Patient sitting comfortably in bed at time of exam. Denies any shortness of breath and nausea/vomiting at this time. Still has some underlying central chest tingling and periumbilical abdominal pain. She states that this abdominal pain has been going on for several days. Will obtain a CT abdomen. Brain MRI unremarkable. Still pending neuro and psych consult at this time. Review of Systems Review of Systems: All systems reviewed & are unremarkable except as noted in HPI and below (Subjective/HPI) Exam Const: General: comfortable and no acute distress HENMT: Mouth: Yes moist mucous membranes Eyes: Pupils: Equal, round and reactive pupils present Neck: Neck: supple Resp: Effort & Inspection: normal respiratory effort Auscultation: clear to auscultation bilaterally Cardio: Rate: regular rate Rhythm: regular rhythm Heart sounds: no gallops, no murmurs and no rubs GI: Inspection: non-distended : General: Yes bladder normal to palpation Bimanual exam- vagina & uterus: bladder normal to palpation Neuro: Cranial nerves: Yes Equal, round and reactive pupils present Speech: normal speech Motor exam (neuro): 5/5 motor strength present throughout Sensory Exam: normal sensation Extrem: General: no edema Psych: Affect: Anxious affect present Other: Tangential speech Objective Data Vital Signs Vital Signs: Vital Signs - 24 hr 01/19/25 17:09 01/19/25 17:15 01/19/25 17:45 Temperature 98.2 F Pulse Rate 76 80 Respiratory Rate 10 L 14 Blood Pressure 129/84 115/74 Pulse Oximetry 100 100 Oxygen Delivery Room Air Room Air 01/19/25 19:10 01/19/25 19:16 01/19/25 21:57 Temperature 97.8 F Pulse Rate 84 74 73 Respiratory Rate 23 H 14 18 Blood Pressure 109/64 103/65 119/77 Pulse Oximetry 98 99 Oxygen Delivery 01/19/25 22:27 01/20/25 05:21 01/20/25 07:45 Temperature 97.4 F L Pulse Rate 89 Respiratory Rate 18 Blood Pressure 107/41 L Pulse Oximetry 98 95 Oxygen Delivery Room Air Room Air Meds/Results Medications: Active Medications Generic Name Dose Route Start Last Admin Trade Name Freq PRN Reason Stop Dose Admin Buspirone HCl 5 mg 01/20/25 09:00 01/20/25 08:40 Buspirone Hcl 5 Mg Tablet PO 5 mg TID JHOAN Administration Clonazepam 0.5 mg 01/20/25 03:50 01/20/25 08:40 Clonazepam (*Crx) 0.5 Mg Tablet PO 0.5 mg Q12H PRN Administration anxiety Clonidine HCl 0.05 mg 01/20/25 09:00 07/16/25 08:38 Clonidine Hcl 0.05 Mg Tablet PO Not Given Q12HR JHOAN Loratadine 10 mg 01/20/25 09:00 01/20/25 08:40 Loratadine 10 Mg Tablet PO 10 mg QAM JHOAN Administration Mirtazapine 7.5 mg 01/20/25 09:00 01/20/25 08:45 Mirtazapine 7.5 Mg Tablet PO Not Given DAILY [facility] Miscellaneous Information 1 each 01/20/25 00:01 Methylphenidate Hcl 10 Mg Tablet Extended Release) Is Nonformulary, Can Patient Bring From XX 02/19/25 00:00 CLARIFY JHOAN Non-Formulary Medication 10 mg 01/20/25 09:00 Methylphenidate Hcl PO 02/19/25 08:59 DAILY [facility] Radiology Results: ITS Impressions Head CT 01/19/25 18:28 IMPRESSION: 1. No acute intracranial process. 2. Symmetric mild bilateral basal ganglia calcification which is atypical for age and which has a wide differential. This would include idiopathic, sequela of toxic insult such as carbon monoxide poisoning or left posterior, sequela of chronic infection such as [employer] toxoplasmosis, tuberculosis or intrauterine TORCH infection, metabolic etiology such as hypoparathyroidism, hyperparathyroidism or hypothyroidism, sequela of hypoxia were multiple variable etiologies. Chest X-Ray 01/19/25 18:37 IMPRESSION: 1. No acute cardiopulmonary disease. Labs Labs: Laboratory Results - last 24 hr 01/19/25 01/19/25 01/19/25 18:00 18:01 18:05 WBC 5.7 RBC 4.42 Hgb 13.1 Hct 39.2 MCV 88.7 MCH 29.6 MCHC 33.4 RDW 12.5 Plt Count 261 MPV 10.7 H Immature Gran % (Auto) 0.2 Neut % (Auto) 52.3 Lymph % (Auto) 36.4 [place] % (Auto) 6.7 Eos % (Auto) 3.2 Baso % (Auto) 1.2 Lymph # (Auto) 2.08 [place] # (Auto) 0.4 Eos # (Auto) 0.2 Baso # (Auto) 0.1 Abs Immat Gran (auto) 0.01 Absolute Neuts (auto) 3.0 Absolute Nucleated RBC 0.000 Nucleated RBC % 0.0 PT 14.4 INR 1.1 APTT 31.2 Puncture Site ABG pH ABG pCO2 ABG pO2 ABG PO2/FiO2 Ratio ABG HCO3 ABG O2 Saturation ABG O2 Content ABG Base Excess A-a Gradient Oxyhemoglobin Total Hemoglobin O2 Delivery Device O2 Liters/Min FiO2 Sodium 140 Potassium 3.6 Chloride 106 Carbon Dioxide 24 Anion Gap 10 BUN 23 H Creatinine 0.81 Estim Creat Clear Calc Not Reportable Estimated GFR > 60 Glucose 102 Calcium 9.3 Magnesium Total Bilirubin 0.3 AST 22 ALT 14 Alkaline Phosphatase 40 Total Creatine Kinase 56 55 Troponin I < 0.012 Total Protein 7.3 Albumin 4.3 Lipase 78 Vitamin B12 Folate TSH 0.525 0.483 Urine Color Yellow Urine Appearance Clear Urine pH 7.0 Ur Specific [place] 1.024 Urine Protein Negative Urine Glucose (UA) Negative Urine Ketones Negative Ur Blood (Man) Negative Urine Nitrate Negative Urine Bilirubin Negative Urine Urobilinogen 0.2 Leukocyte Esterase Rfl Trace H Urine RBC 0-2 Urine WBC 0-5 Ur Squamous Epith Cells Occasional Urine Bacteria 1+ H Urine Casts 0-2 POC Urine HCG, Qual Salicylates < 1.0 L Urine Opiates Screen Negative Urine Methadone Screen Negative Acetaminophen < 10 L Ur Barbiturates Screen Negative Ur Phencyclidine Scrn Negative Ur Amphetamine Screen Negative U Benzodiazepines Scrn Negative Urine Cocaine Screen Negative U Cannabinoids Screen Positive A Ethyl Alcohol < 10 Syphilis IgG/IgM Ab HIV 1&2 Ab/P24 Ag 4thGn 01/19/25 01/19/25 01/20/25 18:07 19:58 05:45 WBC 6.1 RBC 4.35 Hgb 13.0 Hct 39.5 MCV 90.8 MCH 29.9 MCHC 32.9 RDW 12.7 Plt Count 252 MPV 10.8 H Immature Gran % (Auto) 0.3 Neut % (Auto) 47.0 Lymph % (Auto) 40.4 [place] % (Auto) 6.9 Eos % (Auto) 4.4 Baso % (Auto) 1.0 Lymph # (Auto) 2.45 [place] # (Auto) 0.4 Eos # (Auto) 0.3 Baso # (Auto) 0.1 Abs Immat Gran (auto) 0.02 Absolute Neuts (auto) 2.9 Absolute Nucleated RBC 0.000 Nucleated RBC % 0.0 PT INR APTT Puncture Site Left radial ABG pH 7.514 H* ABG pCO2 29.8 L ABG pO2 106.4 H ABG PO2/FiO2 Ratio 5.07 ABG HCO3 23.5 ABG O2 Saturation 98.4 ABG O2 Content 18.8 ABG Base Excess 1.4 A-a Gradient 7.6 Oxyhemoglobin 97.8 Total Hemoglobin 13.6 O2 Delivery Device Room air O2 Liters/Min Not Reportable FiO2 21 Sodium 137 Potassium 3.8 Chloride 107 Carbon Dioxide 22 Anion Gap 8 BUN 22 H Creatinine 0.72 Estim Creat Clear Calc 78 Estimated GFR > 60 Glucose 89 Calcium 8.9 Magnesium 2.0 Total Bilirubin 0.3 AST 21 ALT 11 Alkaline Phosphatase 38 Total Creatine Kinase Troponin I Total Protein 6.5 Albumin 3.8 Lipase Vitamin B12 256.0 Folate 17.6 TSH Urine Color Urine Appearance Urine pH Ur Specific [place] Urine Protein Urine Glucose (UA) Urine Ketones Ur Blood (Man) Urine Nitrate Urine Bilirubin Urine Urobilinogen Leukocyte Esterase Rfl Urine RBC Urine WBC Ur Squamous Epith Cells Urine Bacteria Urine Casts POC Urine HCG, Qual Negative Salicylates Urine Opiates Screen Urine Methadone Screen Acetaminophen Ur Barbiturates Screen Ur Phencyclidine Scrn Ur Amphetamine Screen U Benzodiazepines Scrn Urine Cocaine Screen U Cannabinoids Screen Ethyl Alcohol Syphilis IgG/IgM Ab Non-reactive HIV 1&2 Ab/P24 Ag 4thGn Negative Quality If No VTE Prophylaxis Answer both mechanical and pharmacologic: Reason no mechanical VTE proph: low risk/not indicated
[2025-01-20 09:27] VITALS: BP 103/77; BP 106/92; PULSE 116; PULSE 120; RESP 20; O2SAT 100
[2025-01-20 14:00] VITALS: BP 105/65; PULSE 95; RESP 16; TEMP 36.4; O2SAT 100
--- NOTE | 2025-01-20 14:00 | PCPTNOTE ---
Per nursing, pt independent in the room. Spoke with current hospitalist, OK to remove therpay orders due to pt being at baseline. Nurse aware.
--- NOTE | 2025-01-20 14:42 | WPDNEURCNPN ---
Assessment and Plan Assessment and plan (1) Anxiety: Code(s): F41.9 - Anxiety disorder, unspecified Status: Acute (2) ADHD (attention deficit hyperactivity disorder): Code(s): F90.9 - Attention-deficit hyperactivity disorder, unspecified type Status: Acute Plan 1 ADHD 2. Anxiety 3. Depression. Patient is already under the care of psychiatrist, MRI of the brain has been done and has been documented to be normal, she needs to follow with her psychiatrist there is no neurological condition at this particular time at this stage warrant any further investigations. An EEG can be scheduled as an outpatient for the long-term follow Up. Consult date: 01/20/25 HPI: Jayden Kearney is a 29 year old female Has been admitted to the hospital through the emergency room for the multiple complaints particularly including lightheadedness with dizziness and loop in his for 1 week she reported that she took to half her for clonazepam today. She had taking her high after of the clonazepam prior to the onset of her lid droopiness. She also expressed breast decreased sensation , intermittent chest pain described as sharp and tingling in her chest, intermittent epigastric discomfort, she has ongoing history of ADHD with anxiety and has been on multiple medications as per the instruction of her psychiatrist. She has been seen in the emergency room of other hospital for the same complaints about 2 days ago when the investigations were reportedly normal. Her medications included BuSpar 5mg 3 times a day, clonazepam 0.5mg q.12 hours, clonidine 0.05mg q.12 hours, methylphenidate 10mg extended release daily, admit has a Pean 7.5mg daily. She has history of being a former smoker former alcohol intake but currently substance user. On initial exam in the emergency room she was found to have no focal neurological deficit except the decreased sensation to V1 through V3 and right upper extremity. Her vital signs were normal. CBC was normal, BMP was normal, mast scan was normal, UA was normal and her drug screen was positive for the cannabinoids. Subsequent to the admission she has had MRI of the brain which is also normal. She has been maintained on the BuSpar 5mg 3 times a day, clonidine 0.05mg q.12 hours, mitt has a Pean 7.5mg daily, and Flagyl 500mg q.12 hours, in addition to clonazepam 0.5mg q.12 hours p.r.n.. Review of Systems Review of Systems: All systems reviewed & are unremarkable except as noted in HPI and below [facility] Social History Social History Smoking status: Former smoker Alcohol intake: former Substance use: current Substance use type: marijuana Do You Feel Safe in your Home?: Yes Lack of Transportation: No Lack of Food: Never True Current Housing: I Have Housing Concerned About Future Housing: No Difficulty Paying Gas/Electric Bills: No Difficulty Paying for Meds: No Currently Unemployed: No Education: High School Diploma/GED Difficulty w/ Childcare or Family Care: No Spiritual care concerns: No Meds Home Medications and Allergies Home Medications ?Medication ?Instructions ?Recorded ?Confirmed ?Type albuterol sulfate 90 mcg/actuation 2 puff inhalation Q4-6H 01/19/25 01/19/25 History aerosol inhaler buspirone 5 mg tablet 5 mg PO TID 01/19/25 01/19/25 History cetirizine 10 mg tablet 10 mg PO DAILY 01/19/25 01/19/25 History clonazepam 0.5 mg tablet 0.5 mg PO Q12H PRN anxiety 01/19/25 01/19/25 History clonidine HCl 0.1 mg tablet 0.05 mg PO Q12H 01/19/25 01/19/25 History methylphenidate HCl 10 mg 10 mg PO DAILY 01/19/25 01/19/25 History tablet,extended release mirtazapine 7.5 mg tablet 7.5 mg PO DAILY 01/19/25 01/19/25 History metronidazole 500 mg tablet 500 mg PO .Q12HR 01/20/25 01/20/25 History Allergies Allergy/AdvReac Type Severity Reaction Status Date / Time Sulfa (Sulfonamide Allergy Intermediate Hives Verified 01/20/25 04:17 Antibiotics) Vital Signs Vital Signs - 24 hr 01/19/25 17:09 01/19/25 17:15 01/19/25 17:45 Temperature 36.8 C Pulse Rate 76 80 Respiratory Rate 10 L 14 Blood Pressure 129/84 115/74 Pulse Oximetry 100 100 Oxygen Delivery Room Air Room Air 01/19/25 19:10 01/19/25 19:16 01/19/25 21:57 Temperature 36.6 C Pulse Rate 84 74 73 Respiratory Rate 23 H 14 18 Blood Pressure 109/64 103/65 119/77 Pulse Oximetry 98 99 Oxygen Delivery 01/19/25 22:27 01/20/25 05:21 01/20/25 07:45 Temperature 36.3 C L Pulse Rate 89 Respiratory Rate 18 Blood Pressure 107/41 L Pulse Oximetry 98 95 Oxygen Delivery Room Air Room Air 01/20/25 08:00 01/20/25 09:27 01/20/25 09:27 Temperature 36.6 C Pulse Rate 91 116 H 120 H Respiratory Rate 18 20 20 Blood Pressure 108/63 106/92 H 103/77 Pulse Oximetry 100 100 100 Oxygen Delivery Exam Narrative: Examination today revealed her to be awake alert cooperative in no obvious acute distress, she was able to follow the verbal commands appropriately, she was able to ambulate independently, she could stand on heels she could stand on toes her Romberg's test with eyes closed was negative. His speech was not dysphasic not dysarthric not dysphonic and she did not appear obviously nervous though she was clear that she has been here 2 times for the unclear feeling. Pupils are round regular, grajeda of vision were full in all 4 quadrants, extraocular movements were full in all directions, there was no nystagmus, facial sensation was intact, face was symmetrical, tongue was in midline, uvula was midline, and motor examination revealed her to have normal strength in upper and lower extremities proximally and distally with no evidence of increased tone or rigidity and no evidence of drift against gravity, deep tendon reflexes were symmetrical and plantar responses were downgoing ,there was no evidence of cerebellar dysfunction. Results Labs 01/20/25 05:45 01/20/25 05:45 Labs: Short CBC 01/19/25 01/20/25 Range/Units 18:01 05:45 WBC 5.7 6.1 (4.5-10.0) K/mm3 Hgb 13.1 13.0 (12.0-15.0) g/dL Hct 39.2 39.5 (37.0-47.0) % Plt Count 261 252 (150-375) k/mm3 BMP 01/19/25 01/20/25 18:01 05:45 Sodium 140 137 Potassium 3.6 3.8 Chloride 106 107 Carbon Dioxide 24 22 BUN 23 H 22 H Creatinine 0.81 0.72 Glucose 102 89 Calcium 9.3 8.9 Cardiac Enzymes 01/19/25 01/19/25 Range/Units 18:00 18:01 Total Creatine Kinase 56 55 (30-135) U/L Troponin I < 0.012 (0.000-0.034) ng/mL Liver Function 01/19/25 01/20/25 Range/Units 18:01 05:45 Total Bilirubin 0.3 0.3 (0.2-1.3) mg/dL AST 22 21 (14-36) U/L ALT 14 11 (6-35) U/L Alkaline Phosphatase 40 38 (38-126) U/L Albumin 4.3 3.8 (3.5-5.1) g/dL Urine 01/19/25 Range/Units 18:05 Urine Color Yellow (Yellow) Urine Appearance Clear (Clear) Urine pH 7.0 (5.0-9.0) Ur Specific [place] 1.024 (1.001-1.035) Urine Protein Negative (Negative) mg/dL Urine Glucose (UA) Negative (Negative) mg/dL
--- NOTE | 2025-01-20 16:19 | PM.DS ---
DS: Admitting Diagnosis Discharge Date 01/20/2025 Admitting Diagnosis Multiple complaints, dizziness, pain, tingling DS: Discharge Diagnosis Discharge Diagnosis (1) Abnormal brain CT: Code(s): R90.89 - Other abnormal findings on diagnostic imaging of central nervous system Status: Acute (2) Dizziness: Code(s): R42 - Dizziness and giddiness Status: Acute (3) Anxiety: Code(s): F41.9 - Anxiety disorder, unspecified Status: Acute (4) Respiratory alkalosis: Code(s): E87.3 - Alkalosis Status: Acute DS: Summary Hospital Course Reason for hospitalization: Abnormal brain CT, Dizziness Hospital Course: 29-year-old female presents to [facility] ER on 01/19/2025 with multiple complaints. She is accompanied by her fiance who she lives with. The patient reports lightheadedness, dizziness, feeling loopy, pain in the chest, jerking of the head, anxiety, and a fortunately her complaints are endless, difficult to pinpoint. During evaluation she has pressured speech, flight of ideas, tangential speech. She has a history of ADHD, anxiety. She sees a psychiatrist Maliha Del Rosario and recently they were trying to wean down her clonazepam and mirtazapine. The patient had the above complaints for about a week and 2 days prior to admission presented to [place]. No etiology was identified and patient was discharged. She is not travel recently, denies fever, shortness of breath, nausea vomiting cough, diarrhea. She has 1 cat at home for over year now. Not had sick contacts. Her evaluation largely unremarkable including her vital signs, chest x-ray, CBC, INR, CMP except for a BUN of 23, urinalysis, U tox with positive cannabinoids. Patient reports having cessation of marijuana use in January. Acetaminophen salicylates and ethanol levels within normal limits. ABG demonstrating respiratory alkalosis with pH 7.5 and a pCO2 29.8 with a PO2 106.[address] head did not demonstrate acute intracranial process but symmetric mild bilateral basal ganglia calcification which is atypical for age which could include a wide range of etiologies. Dr. Estevez of Neurology was contacted from the ER. Suggested brain MRI and admission. Brain MRI was obtained which was unremarkable for any significant acute findings. Neurology was consulted and recommended her follow-up with her psychiatrist in the outpatient setting and that there was no neurological condition at this time warranted further investigations. He also recommended an EEG in the outpatient setting. Throughout hospitalization, blood work remained unremarkable and stable. Vital signs also were unremarkable. Chest x-ray and brain MRI were negative for any acute findings. Abdomen/pelvis CT scan was obtained for obscure sporadic abdominal discomfort without any alleviating or aggravating factors. CT scan showed no evidence of appendicitis, diverticulitis or internal obstruction. It did show left ovarian cyst and constipation but was otherwise unremarkable. Neurological exam during hospitalization has also been reassuring and unremarkable. Patient expressing interest in being discharged at this time. PT/OT evals were ordered but as patient has been seen ambulating throughout the room independently, these were canceled. She does have an appointment with her psychiatrist tomorrow and plan to follow-up with her PCP in the next few weeks. Patient along requires hospitalization and can be safely discharged home at this time. Status at Discharge Functional status at discharge: independent ambulation Overall status at discharge: patient is back to baseline Time Spent with Patient Time attestation: Total time spent providing and/or coordinating discharge services: 45 Exam Const: General: comfortable and no acute distress HENMT: Mouth: Yes moist mucous membranes Eyes: Pupils: Equal, round and reactive pupils present Neck: Neck: supple Resp: Effort & Inspection: normal respiratory effort Auscultation: clear to auscultation bilaterally Cardio: Rate: regular rate Rhythm: regular rhythm Heart sounds: no gallops, no murmurs and no rubs GI: Inspection: non-distended : General: Yes bladder normal to palpation Bimanual exam- vagina & uterus: bladder normal to palpation Neuro: Cranial nerves: Yes Equal, round and reactive pupils present Speech: normal speech Motor exam (neuro): 5/5 motor strength present throughout Sensory Exam: normal sensation Extrem: General: no edema Psych: Mental Status: mental status grossly normal Affect: normal affect DS: Data Data Completed and Pending Labs on day of discharge: Labs from last 24 hours 01/20/25 01/19/25 01/19/25 05:45 19:58 18:07 WBC 6.1 RBC 4.35 Hgb 13.0 Hct 39.5 MCV 90.8 MCH 29.9 MCHC 32.9 RDW 12.7 Plt Count 252 MPV 10.8 H Immature Gran % (Auto) 0.3 Neut % (Auto) 47.0 Lymph % (Auto) 40.4 [place] % (Auto) 6.9 Eos % (Auto) 4.4 Baso % (Auto) 1.0 Lymph # (Auto) 2.45 [place] # (Auto) 0.4 Eos # (Auto) 0.3 Baso # (Auto) 0.1 Abs Immat Gran (auto) 0.02 Absolute Neuts (auto) 2.9 Absolute Nucleated RBC 0.000 Nucleated RBC % 0.0 PT INR APTT Puncture Site Left radial ABG pH 7.514 H* ABG pCO2 29.8 L ABG pO2 106.4 H ABG PO2/FiO2 Ratio 5.07 ABG HCO3 23.5 ABG O2 Saturation 98.4 ABG O2 Content 18.8 ABG Base Excess 1.4 A-a Gradient 7.6 Oxyhemoglobin 97.8 Total Hemoglobin 13.6 O2 Delivery Device Room air O2 Liters/Min Not Reportable FiO2 21 Sodium 137 Potassium 3.8 Chloride 107 Carbon Dioxide 22 Anion Gap 8 BUN 22 H Creatinine 0.72 Estim Creat Clear Calc 78 Estimated GFR > 60 Glucose 89 Calcium 8.9 Magnesium 2.0 Total Bilirubin 0.3 AST 21 ALT 11 Alkaline Phosphatase 38 Total Creatine Kinase Troponin I Total Protein 6.5 Albumin 3.8 Lipase Vitamin B12 256.0 Folate 17.6 TSH Urine Color Urine Appearance Urine pH Ur Specific [place] Urine Protein Urine Glucose (UA) Urine Ketones Ur Blood (Man) Urine Nitrate Urine Bilirubin Urine Urobilinogen Leukocyte Esterase Rfl Urine RBC Urine WBC Ur Squamous Epith Cells Urine Bacteria Urine Casts POC Urine HCG, Qual Negative Salicylates Urine Opiates Screen Urine Methadone Screen Acetaminophen Ur Barbiturates Screen Ur Phencyclidine Scrn Ur Amphetamine Screen U Benzodiazepines Scrn Urine Cocaine Screen U Cannabinoids Screen Ethyl Alcohol Syphilis IgG/IgM Ab Non-reactive HIV 1&2 Ab/P24 Ag 4thGn Negative 01/19/25 01/19/25 01/19/25 18:05 18:01 18:00 WBC 5.7 RBC 4.42 Hgb 13.1 Hct 39.2 MCV 88.7 MCH 29.6 MCHC 33.4 RDW 12.5 Plt Count 261 MPV 10.7 H Immature Gran % (Auto) 0.2 Neut % (Auto) 52.3 Lymph % (Auto) 36.4 [place] % (Auto) 6.7 Eos % (Auto) 3.2 Baso % (Auto) 1.2 Lymph # (Auto) 2.08 [place] # (Auto) 0.4 Eos # (Auto) 0.2 Baso # (Auto) 0.1 Abs Immat Gran (auto) 0.01 Absolute Neuts (auto) 3.0 Absolute Nucleated RBC 0.000 Nucleated RBC % 0.0 PT 14.4 INR 1.1 APTT 31.2 Puncture Site ABG pH ABG pCO2 ABG pO2 ABG PO2/FiO2 Ratio ABG HCO3 ABG O2 Saturation ABG O2 Content ABG Base Excess A-a Gradient Oxyhemoglobin Total Hemoglobin O2 Delivery Device O2 Liters/Min FiO2 Sodium 140 Potassium 3.6 Chloride 106 Carbon Dioxide 24 Anion Gap 10 BUN 23 H Creatinine 0.81 Estim Creat Clear Calc Not Reportable Estimated GFR > 60 Glucose 102 Calcium 9.3 Magnesium Total Bilirubin 0.3 AST 22 ALT 14 Alkaline Phosphatase 40 Total Creatine Kinase 55 56 Troponin I < 0.012 Total Protein 7.3 Albumin 4.3 Lipase 78 Vitamin B12 Folate TSH 0.483 0.525 Urine Color Yellow Urine Appearance Clear Urine pH 7.0 Ur Specific [place] 1.024 Urine Protein Negative Urine Glucose (UA) Negative Urine Ketones Negative Ur Blood (Man) Negative Urine Nitrate Negative Urine Bilirubin Negative Urine Urobilinogen 0.2 Leukocyte Esterase Rfl Trace H Urine RBC 0-2 Urine WBC 0-5 Ur Squamous Epith Cells Occasional Urine Bacteria 1+ H Urine Casts 0-2 POC Urine HCG, Qual Salicylates < 1.0 L Urine Opiates Screen Negative Urine Methadone Screen Negative Acetaminophen < 10 L Ur Barbiturates Screen Negative Ur Phencyclidine Scrn Negative Ur Amphetamine Screen Negative U Benzodiazepines Scrn Negative Urine Cocaine Screen Negative U Cannabinoids Screen Positive A Ethyl Alcohol < 10 Syphilis IgG/IgM Ab HIV 1&2 Ab/P24 Ag 4thGn Discharge Plan Discharge Attending physician on discharge: Tye Hernandez Consulting providers: Dave Wright; Hugo Estevez Discharging Clinician: Dave Wright Anticipated Discharge Date/Time: 01/20/25 16:18 Patient Disposition: Home Activity: as tolerated Diet: regular Discharge Instructions: Discharge disposition: Home, stable Take medications as prescribed Monitor blood pressures Take caution while standing, rising, or moving Change positions slowly taking a break between each position change If you standing feel dizzy sit back down and take a break Encouraged to continue with yearly vaccinations Return to the emergency department if he developed sudden shortness of breath, chest pain, nausea, vomiting, upset stomach or intractable diarrhea Return to the emergency department if you develop fever greater than 101.[address] scan showed Symmetric mild bilateral basal ganglia calcification which is atypical for age and which has a wide differential but your Brain MRI did not show any significant findings. Follow-up with the primary care physician within 1-2 weeks You have an appointment tomorrow with your psychiatrist -be sure to follow-up at this appointment for possible medication changes. Thank you for choosing [facility] for your healthcare needs Patient Instructions: Antibiotic Form Patient Language: Setswana Stand Alone Forms: General Discharge Information Follow-up/Referrals: UNKNOWN,DOCTOR [Primary Care Provider] - Discharge Medications: Continued albuterol sulfate 90 mcg/actuation HFA aerosol inhaler 2 puff INHALATION Q4-6H buspirone 5 mg tablet 5 mg PO TID cetirizine 10 mg tablet 10 mg PO DAILY clonazepam 0.5 mg tablet 0.5 mg PO Q12H PRN (Reason: anxiety) clonidine HCl 0.1 mg tablet 0.05 mg PO Q12H methylphenidate HCl 10 mg tablet extended release 10 mg PO DAILY mirtazapine 7.5 mg tablet 7.5 mg PO DAILY metronidazole 500 mg tablet 500 mg PO .Q12HR Date of admission: 01/19/25 19:45 Primary Care Provider: UNKNOWN,DOCTOR Admitting Provider: Solange Clark Attending physician on admission: Solange Clark Condition: Stable
== END 2025-01-20 16:46 | disposition home or self-care (01) ==
LOC: ANHED 19:44 → ANH3MEDSUR 01-20 07:33
PROVIDERS: Admitting Provider General Practice; Emergency Provider Physician Assistant; Visit Provider Internal Medicine
DX: R07.89 Other chest pain (principal); R90.89 Other abnormal findings on diagnostic imaging of central nervous system; E87.3 Alkalosis; F90.9 Attention-deficit hyperactivity disorder, unspecified type; Z87.891 Personal history of nicotine dependence; F41.9 Anxiety disorder, unspecified
CPT/HCPCS: 36415; 36600; 70450; 70553; 71045; 74177; 80053; 80143; 80179; 80307; 81001; 81025; 82077; 82550; 82607; 82746; 82805; 83690; 83735; 84443; 84484; 85018; 85025; 85610; 85730; 86593; 86703; 93005; A9270; A9579; G0378; G0379; G0432; Q9967

== ENCOUNTER 2025-06-23 08:47 | Emergency (ER) | payer OTHER, SELFPAY ==
--- NOTE | ~2025-06-23 | US_ITS ---
EXAMINATION: US venous doppler LE , 06/23/2025 9:54 VISUAL SUPERVISOR HISTORY: L calf pain Comparison: None Technique: Thomas-scale and color Doppler images were attempted of the lower saphenofemoral junction, common femoral vein,superficial femoral vein, proximal deep femoral vein, proximal deep femoral vein, popliteal vein and posterior tibial veins. Findings: Deep Venous System:Normal flow, augmentation and compressibility. No echogenic thrombus identified. The contralateral saphenofemoral junction appears unremarkable. Superficial Venous SystemNo superficial thrombophlebitis. Soft tissues: Soft tissues are unremarkable. Impression: Negative for DVT. Reviewed, dictated and finalized at location P. AL SUPERVISOR Impression: Negative for DVT.
--- NOTE | ~2025-06-23 | XR_ITS ---
EXAMINATION: XR knee LT min 4V, 06/23/2025 10:30 COMPENSATION PROGRAMS MANAGER HISTORY: L knee pain x 6 days COMPARISON: No comparisons available. Findings: No acute fracture or malalignment. No significant degenerative changes. Soft tissues unremarkable. Impression: No acute fracture or malalignment. Reviewed, dictated and finalized at location P. ENSATION PROGRAMS MANAGER Impression: No acute fracture or malalignment.
[2025-06-23 08:48] VITALS: BP 114/74; PULSE 120; RESP 20; TEMP 36.9; O2SAT 100
--- NOTE | 2025-06-23 09:23 | ED.LOWEXIN ---
HPI - Extremity Injury (Lower) General Chief Complaint: Extremity Injury, Lower Stated Complaint: Knee pain Time Seen by Provider: 06/23/25 09:07 History of Present Illness HPI Narrative: Patient is a 29-year-old female presents to the ER with left knee pain. She reports she heard it ?pop when she twisted approximately 6 days ago. Patient reports the pain has affected the way she walks which now causes pain in her right knee and left ankle. She reports she is currently nonweightbearing due to pain. Patient sources history of anxiety, depression, ADHD, and PTSD. She denies any hip pain, recent fevers, or abdominal pain. Related Data Home Medications ?Medication ?Instructions ?Recorded ?Confirmed ?Last Taken ?Type albuterol sulfate 90 mcg/actuation 2 puff inhalation Q4-6H 01/19/25 01/19/25 Unknown History aerosol inhaler buspirone 5 mg tablet 5 mg PO TID 01/19/25 01/19/25 01/18/25 History cetirizine 10 mg tablet 10 mg PO DAILY 01/19/25 01/19/25 01/18/25 History clonazepam 0.5 mg tablet 0.5 mg PO Q12H PRN anxiety 01/19/25 01/19/25 Unknown History clonidine HCl 0.1 mg tablet 0.05 mg PO Q12H 01/19/25 01/19/25 01/18/25 History methylphenidate HCl 10 mg 10 mg PO DAILY 01/19/25 01/19/25 01/18/25 History tablet,extended release mirtazapine 7.5 mg tablet 7.5 mg PO DAILY 01/19/25 01/19/25 01/18/25 History metronidazole 500 mg tablet 500 mg PO .Q12HR 01/20/25 01/20/25 01/19/25 History Allergies Allergy/AdvReac Type Severity Reaction Status Date / Time Sulfa (Sulfonamide Allergy Intermediate Hives Verified 01/20/25 04:17 Antibiotics) Review of Systems Review of Systems: All systems reviewed & are unremarkable except as noted in HPI and below PMFSH Social History Social History Smoking status: Former smoker Alcohol intake: former Substance use: current Substance use type: marijuana Lack of Transportation: No Lack of Food: Never True Current Housing: I Have Housing Concerned About Future Housing: No Difficulty Paying Gas/Electric Bills: No Difficulty Paying for Meds: No Currently Unemployed: No Education: High School Diploma/GED Difficulty w/ Childcare or Family Care: No Spiritual care concerns: No Exam Narrative: GENERAL: Well appearing, well-nourished, non-toxic, in no acute distress. HEAD: Normocephalic, atraumatic. NECK: Supple. No adenopathy, no masses. RESPIRATORY: Airway patent, respirations nonlabored. Clear to auscultation bilaterally, no rales, rhonchi, wheezing. CARDIOVASCULAR: Regular rate and rhythm without murmurs, rubs, or gallops. Peripheral pulses 2+ and equal bilaterally. ABDOMINAL: Soft, nontender, nondistended, no hepatosplenomegaly. Normoactive BS. MUSCULOSKELETAL: Moves all extremities. Strength/ROM intact without gross deformities. Mild edema left knee. Positive Homans sign. SKIN: Warm, dry, normal color. No rashes. NEURO: A&O X3. Speech clear. Cranial nerves II-XII intact. No ataxic movements. PSYCHIATRIC: Manic behavior-speaking fast, throwing arms around as she speaks Course Vital Signs Vital signs: Vital Signs Temperature 36.9 C 06/23/25 08:48 Pulse Rate 120 H 06/23/25 08:48 Respiratory Rate 20 06/23/25 08:48 Blood Pressure 114/74 06/23/25 08:48 Pulse Oximetry 100 06/23/25 08:48 Oxygen Delivery Room Air 06/23/25 08:48 Temperature 36.9 C 06/23/25 08:48 Pulse Rate 72 06/23/25 10:15 Respiratory Rate 18 06/23/25 10:15 Blood Pressure 98/44 L 06/23/25 10:15 Pulse Oximetry 100 06/23/25 10:15 Oxygen Delivery Room Air 06/23/25 08:48 [facility] MDM Narrative Medical decision making narrative: Patient is a 29-year-old female presents to the ER with left knee pain. She reports she heard it ?pop when she twisted approximately 6 days ago. Patient reports the pain has affected the way she walks which now causes pain in her right knee and left ankle. She reports she is currently nonweightbearing due to pain. Patient sources history of anxiety, depression, ADHD, and PTSD. She denies any hip pain, recent fevers, or abdominal pain. Labs Ordered: UA, UDS Imaging Ordered: Left lower extremity venous Doppler ultrasound, left knee x-ray Medications Ordered: [place] p.o. Results: Pt's L US indicates Deep Venous System:Normal flow, augmentation and compressibility. No echogenic thrombus identified. The contralateral saphenofemoral junction appears unremarkable. Superficial Venous SystemNo superficial thrombophlebitis. Soft tissues: Soft tissues are unremarkable. Pt's L x-ray indicates No acute fracture or malalignment. Diagnosis: Left knee pain Consults: orthopedic surgery (outpatient), already established with Dr. Lewis, appointment on 06/29 Patient Education/Shared MDM: Results of lab work and imaging shared with patient. She endorses improvement of symptoms following medication administration. Patient strongly advised to maintain hydration status upon discharge and follow-up with Orthopedic surgery, as planned. She will be discharged home with a prescription for Lidocaine patches, and a walker (per pt's request). Strict return precautions provided. Patient verbalized understanding and is in agreement with plan. Vital signs stable at time of discharge. All questions answered. Differential Diagnosis Differential Diagnosis: Left knee fracture, left knee strain, left knee dislocation, DVT, UTI Lab Data MDM Lab Attestation statement: I personally reviewed the patient's lab results. Labs: Lab Results 06/23/25 06/23/25 Range/Units 09:49 09:54 Urine Color Yellow (Yellow) Urine Appearance Cloudy H (Clear) Urine pH 6.0 (5.0-9.0) Ur Specific [place] 1.030 (1.001-1.035) Urine Protein Negative (Negative) mg/dL Urine Glucose (UA) Negative (Negative) mg/dL Urine Ketones 3+ H (Negative) mg/dL Ur Blood (Man) Trace (Negative) Urine Nitrate Negative (Negative) Urine Bilirubin Negative (Negative) Urine Urobilinogen 1.0 (<2.0) mg/dL Leukocyte Esterase Rfl 1+ H (Negative) SEKOU/UL Urine RBC 3-5 H (0-2) /hpf Urine WBC 21-50 H (0-3) /hpf Ur Squamous Epith Cells Few (Few) /hpf Urine Bacteria 3+ H /hpf Urine Casts 0-2 POC Urine HCG, Qual Negative (Negative) Urine Opiates Screen Negative (Negative) Urine Methadone Screen Negative (Negative) Ur Barbiturates Screen Negative (Negative) Ur Phencyclidine Scrn Negative (Negative) Ur Amphetamine Screen Negative (Negative) U Benzodiazepines Scrn Negative (Negative) Urine Cocaine Screen Negative (Negative) U Cannabinoids Screen Positive A (Negative) Imaging Data Attestation: I personally reviewed and interpreted this imaging study as follows: Radiologist's impression: ITS Impressions Venous Doppler Study 06/23/25 10:20 Impression: Negative for DVT. Knee X-Ray 06/23/25 10:44 Impression: No acute fracture or malalignment. Discharge Plan Discharge Clinical Impression: Acute pain of left knee, Urinary tract infection Patient Disposition: Home Condition: Stable Instructions: Antibiotic Form, Knee Pain (ED) Additional Instructions: Please return to the ER with any worsening symptoms. Follow-up with Orthopedic surgery, as planned. Take all medications as prescribed, including regularly scheduled medications. You may take Tylenol and/or ibuprofen/Toradol (already prescribed)/Aleve. Patient Language: Danish Prescriptions: New lidocaine 5 % adhesive patch,medicated 1 patch topical DAILY Qty: 30 0RF Rx Instructions: leave on most painful area for up to 12 hrs No Action albuterol sulfate 90 mcg/actuation HFA aerosol inhaler 2 puff INHALATION Q4-6H buspirone 5 mg tablet 5 mg PO TID cetirizine 10 mg tablet 10 mg PO DAILY clonazepam 0.5 mg tablet 0.5 mg PO Q12H PRN (Reason: anxiety) clonidine HCl 0.1 mg tablet 0.05 mg PO Q12H methylphenidate HCl 10 mg tablet extended release 10 mg PO DAILY mirtazapine 7.5 mg tablet 7.5 mg PO DAILY metronidazole 500 mg tablet 500 mg PO .Q12HR Follow-up/Referrals: Michael Lewis MD [Physician, Orthopedics] PHYSICIAN NOT ON STAFF,NONSTAFF [Non-Staff] Stand Alone Forms: Work/School Release IP Time of Disposition: 11:35
[2025-06-23] MEDS: HYDROcodone/acetaminophen (*CRX) 5-325 MG TABLET 1 TAB PO (09:28)
[2025-06-23 10:01] LABS: BEDSIDEPREGUCG Negative (Negative)
[2025-06-23 10:03] LABS: Add Urine Microscopic? YES; Appearance Urine Cloudy (Clear); Glucose Urine UA Negative (Negative); Leukocyte Esterase Ur 1+ LEU/UL (Negative); Nitrate Urine Negative (Negative); Non Pathogenic Casts 0-2; Specific Grav Ur 1.030 (1.001-1.035)
[2025-06-23 10:15] VITALS: BP 98/44; PULSE 72; RESP 18; O2SAT 100
[2025-06-23 10:37] LABS: Cannabinoid Screen Urine Positive (Negative)
[2025-06-23 12:16] VITALS: BP 100/70; PULSE 70; RESP 16; O2SAT 100
== END 2025-06-23 12:29 | disposition home or self-care (01) ==
PROVIDERS: Emergency Provider Registered Nurse
DX: N39.0 Urinary tract infection, site not specified (principal); M25.562 Pain in left knee; Z87.891 Personal history of nicotine dependence
CPT/HCPCS: 73564; 80307; 81001; 81025; 87086; 93971; 99284; A9270